=== PATIENT | female | born 1950 | race Caucasian/White ===

== ENCOUNTER 2017-05-21 12:15 | Inpatient (IN) ==
--- NOTE | 2017-05-21 12:23 | Emergency Department Note ---
Disposition Clinical Impression: Hypokalemia, Non-STEMI (non-ST elevated myocardial infarction) UTI (urinary tract infection) Qualifiers: Urinary tract infection type: acute cystitis Hematuria presence: without hematuria Qualified Code(s): N30.00 - Acute cystitis without hematuria Disposition: Admitted As Inpatient Condition: Fair Referrals: Unassigned,Provider [Non-Partnered Physician] - Forms: Work/School Release, ED Satisfaction Letter Time of Disposition: 16:44 General Adult HPI - General Chief complaint: ED General Medical Stated complaint: Multiple complaints Time Seen by Provider: 05/21/17 12:20 Source: patient, EMS Mode of arrival: EMS Limitations: no limitations Nursing Notes Reviewed: Yes Vital Signs Reviewed: Yes - History of Present Illness HPI Narrative: 67-year-old who was seen by her home health care nurse today. She was found lying in the bed covered with feces feces on the floor around the bed. Apparently the Velasquez catheter was changed as it contained a bag of milky white material. After changing the catheter the urine is clear. 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 No chest pain Onset (ago): Just VERIFY REP - Related Data Home Medications Medication Instructions Recorded Confirmed Metformin [Glucophage] 1,000 mg PO BID 07/13/15 05/21/17 Aspirin 325 mg PO DAILY 05/21/17 05/21/17 Atorvastatin Calcium [Lipitor] 20 mg PO HS 05/21/17 05/21/17 Ferrous Sulfate 324 mg PO BID 05/21/17 05/21/17 Glucagon,Human Recombinant 1 mg IJ ONCE PRN 05/21/17 05/21/17 [Glucagon Emergency Kit] Nortriptyline HCl 75 mg PO HS 05/21/17 05/21/17 Sertraline [Zoloft] 50 mg PO HS 05/21/17 05/21/17 Sertraline [Zoloft] 100 mg PO QAM 05/21/17 05/21/17 Allergies Allergy/AdvReac Type Severity Reaction Status Date / Time No Known Allergies Allergy Verified 01/16/16 14:34 All systems ED: reviewed and negative except as stated. Constitutional: Denies: fever, chills, weakness, weight change Eyes: Denies: eye pain, eye discharge, vision change ENT ED: Denies: ear pain, throat pain, dental pain, hearing loss, epistaxis, congestion, dysphagia Cardiovascular: Denies: chest pain, palpitations, dyspnea on exertion, edema, syncope Respiratory: Denies: cough, dyspnea, wheezes, hemoptysis, stridor Gastrointestinal: Denies: abdominal pain, nausea, vomiting, diarrhea, constipation, hematemesis, melena, hematochezia Genitourinary: Denies: dysuria, frequency, hematuria, discharge Musculoskeletal: Reports: other (Inability to ambulate). Denies: back pain, neck pain, arthralgia, myalgia Integumentary: Denies: rash, abrasion, lesions Neurological: Denies: headache, weakness, numbness, paresthesias, confusion, abnormal gait, vertigo Psychiatric: Denies: anxiety, depression, suicidal thoughts, homicidal thoughts , auditory hallucinations, visual hallucinations Endocrine: Denies: fatigue Hematological/Lymphatic: Denies: easy bleeding, easy bruising Allergic/Immunologic: Denies: facial swelling, urticaria Past Medical History - Past Medical History Medical history: Reports: cancer, DVT, diabetes, hyperlipidemia Surgical history: Reports: appendectomy, cancer surgery, hysterectomy, other Psychiatric history: Reports: anxiety, depression 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 - Social History Smoking Status: Never smoker Smokeless Tobacco Status: No Alcohol use: Reports: none Drug use: Reports: none Physical Exam - General Limitations: no limitations General appearance: alert, in no apparent distress - Head Head exam: atraumatic, normocephalic, normal inspection - Eye Eye exam: Present: normal appearance, PERRL, EOMI - ENT ENT exam: normal exam - Neck Neck exam: Present: normal inspection, full ROM, trachea midline - Chest Chest inspection: Present: normal inspection, symmetric chest wall rise - Respiratory Respiratory exam: Present: normal lung sounds bilaterally - Cardiovascular Cardiovascular exam: Present: regular rate, normal rhythm, normal heart sounds - Abdominal Exam Abdominal exam: Present: soft, Non-Tender. Absent: tenderness, distention, guarding, rebound, rigidity - Extremities Exam Extremities exam: Present: other (AKA on the left) - Expanded Lower Extremity Exam Neurovascular/Tendon exam: Present: normal capillary refill Gait: not tested/not observed - Back Exam Back exam: Present: normal inspection, full ROM. Absent: tenderness - Neurological Exam Neurological exam: Present: alert, oriented X3 - Psychiatric Psychiatric exam: Present: normal affect, normal mood - Skin Skin exam: Present: warm, dry, intact, normal color Course - Consultations Consultation #1: Discussed with Dr. Stack, admit Time: 16:42 Consultation #2: Discussed with Dr. Sosa who recommends heparin if no bleeding contraindications which she does not have. I did send the EKG to him for review. Time: 15:30 Vital Signs Temperature 98.4 F 05/21/17 12:18 Pulse Rate 75 05/21/17 12:18 Respiratory Rate 18 05/21/17 12:18 Blood Pressure 131/57 05/21/17 12:18 O2 Sat by Pulse Oximetry 94 05/21/17 12:18 Temperature 98.4 F 05/21/17 12:18 Pulse Rate 75 05/21/17 12:18 Respiratory Rate 18 05/21/17 12:18 Blood Pressure 131/57 05/21/17 12:18 O2 Sat by Pulse Oximetry 94 05/21/17 12:18 Oxygen Delivery Oxygen Delivery Room Air Medical Decision Making - Lab Data Result diagrams: 05/21/17 14:57 05/21/17 16:15 Lab Results 05/21/17 05/21/17 05/21/17 Range/Units 13:17 14:57 14:57 WBC 12.4 H (4.3-11.1) K/mcL RBC 5.22 H (3.82-4.97) M/mcL Hgb 11.7 (11.5-15.4) g/dL Hct 40.5 (35.3-44.9) % MCV 77.6 L (83.0-100.0) fL MCH 22.4 L (28.0-33.3) pg MCHC 28.9 L (31.6-35.5) g/dL RDW 19.0 H (11.5-14.5) % Plt Count 334 (140-400) K/mcL MPV 10.5 (9.4-12.4) fL Seg Neutrophils % 82.0 % Band Neutrophils % 1.0 (0-4) % Lymphocytes % 8.0 % Monocytes % 8.0 % Eosinophils % 1.0 % Neutrophils # 10.3 H (1.6-8.9) K/mcL Lymphocytes # 1.0 (0.6-4.6) K/mcL Monocytes # 1.0 (0.0-1.3) K/mcL Eosinophils # 0.1 (0.0-0.6) K/mcL Reactive Lymphocytes Present A (Not Present) Platelet Estimate Normal (Normal) Hypochromasia Present A (Not Present) Anisocytosis 1+ A (Not Present) Microcytosis Present A (Not Present) Ovalocytes 1+ A (Not Present) PT (9.4-12.1) Seconds INR APTT (26.0-36.0) Seconds Sodium 142 (136-145) mEq/L Potassium 1.9 L* (3.5-4.5) mEq/L Chloride 102 (98-109) mEq/L Carbon Dioxide 30 H (19-29) mEq/L BUN 10 (7-20) mg/dL Creatinine 0.72 (0.57-1.11) mg/dL Est GFR ( Amer) > 60 (> 60) Est GFR (Non-Af Amer) > 60 (> 60) BUN/Creatinine Ratio 14 (6-26) Glucose 69 L (70-99) mg/dL Calculated Osmolality 291 (280-300) Calcium 7.8 L (8.6-10.8) mg/dL Troponin I (0-0.03) ng/mL Urine Color Yellow (Yellow) Urine Clarity Cloudy A (Clear) Urine pH 6.0 (5.0-8.0) pH Units Ur Specific [place] 1.016 (1.010-1.025) Urine Protein 30 H (Neg-Trace) mg/dL Urine Glucose (UA) Normal (Normal) mg/dL Urine Ketones Trace H (Negative) mg/dL Urine Blood Small H (Negative) Urine Nitrite Negative (Negative) Urine Bilirubin Negative (Negative) Urine Urobilinogen Normal (Normal) mg/dL Ur Leukocyte Esterase Moderate H (Negative) Urine Microscopic RBC 3-5 H (0-3) per hpf Urine Microscopic WBC 30-50 H (0-3) per hpf Ur Squamous Epith Cells Moderate H (None-Few) per lpf Urine Bacteria Few (None-Few) per hpf Hyaline Casts None Seen (None-Few) per lpf Ur Culture Indicated? YES A (NO) 05/21/17 05/21/17 05/21/17 Range/Units 14:57 14:57 16:15 WBC (4.3-11.1) K/mcL RBC (3.82-4.97) M/mcL Hgb (11.5-15.4) g/dL Hct (35.3-44.9) % MCV (83.0-100.0) fL MCH (28.0-33.3) pg MCHC (31.6-35.5) g/dL RDW (11.5-14.5) % Plt Count (140-400) K/mcL MPV (9.4-12.4) fL Seg Neutrophils % % Band Neutrophils % (0-4) % Lymphocytes % % Monocytes % % Eosinophils % % Neutrophils # (1.6-8.9) K/mcL Lymphocytes # (0.6-4.6) K/mcL Monocytes # (0.0-1.3) K/mcL Eosinophils # (0.0-0.6) K/mcL Reactive Lymphocytes (Not Present) Platelet Estimate (Normal) Hypochromasia (Not Present) Anisocytosis (Not Present) Microcytosis (Not Present) Ovalocytes (Not Present) PT 12.8 H (9.4-12.1) Seconds INR 1.2 APTT 32.1 (26.0-36.0) Seconds Sodium (136-145) mEq/L Potassium 1.7 L* (3.5-4.5) mEq/L Chloride (98-109) mEq/L Carbon Dioxide (19-29) mEq/L BUN (7-20) mg/dL Creatinine (0.57-1.11) mg/dL Est GFR ( Amer) (> 60) Est GFR (Non-Af Amer) (> 60) BUN/Creatinine Ratio (6-26) Glucose (70-99) mg/dL Calculated Osmolality (280-300) Calcium (8.6-10.8) mg/dL Troponin I 1.05 H* (0-0.03) ng/mL Urine Color (Yellow) Urine Clarity (Clear) Urine pH (5.0-8.0) pH Units Ur Specific [place] (1.010-1.025) Urine Protein (Neg-Trace) mg/dL Urine Glucose (UA) (Normal) mg/dL Urine Ketones (Negative) mg/dL Urine Blood (Negative) Urine Nitrite (Negative) Urine Bilirubin (Negative) Urine Urobilinogen (Normal) mg/dL Ur Leukocyte Esterase (Negative) Urine Microscopic RBC (0-3) per hpf Urine Microscopic WBC (0-3) per hpf Ur Squamous Epith Cells (None-Few) per lpf Urine Bacteria (None-Few) per hpf Hyaline Casts (None-Few) per lpf Ur Culture Indicated? (NO) - EKG Data EKG #1 EKG attestation: Yes I reviewed and interpreted this EKG. EKG shows normal: sinus rhythm Rate: normal Rhythm: NSR, PAC's Q waves: III QRS morphology: poor R-wave progression Interpretation: no acute changes Critical Care Time Critical Care Time: Yes Total Critical Care Time: 30 Attestation: The high probability of a clinically significant, sudden or life threatening deterioration of the [endocrine] system(s) required my full and direct attention , intervention and personal management. The aggregate critical care time was [30 ] minutes. This time is in addition to time spent performing reported procedures but includes the following: [x] Data Review and interpretation [x] Patient assessment and monitoring of vital signs [x] Documentation [x] Medication orders and management
[2017-05-21 13:28] LABS: Bilirubin,Urine Negative (Negative); Blood,Urine Small (Negative); Clarity,Urine Cloudy (Clear); Color,Urine Yellow (Yellow); Glucose,Urine (UA) Normal (Normal); Ketones,Urine Trace mg/dL (Negative); Leukocyte Esterase,Urine Moderate (Negative); Nitrite,Urine Negative (Negative); Protein,Urine 30 mg/dL (Neg-Trace); Specific Gravity,Urine 1.016 (1.010-1.025); Urobilinogen,Urine Normal (Normal)
[2017-05-21 13:30] LABS: Bacteria,Urine Few per hpf (None-Few); Hyaline Casts,Urine None Seen per lpf (None-Few); Squamous Epithelial Cell,Urine Moderate per lpf (None-Few); WBC,Urine 30-50 per hpf (0-3)
[2017-05-21 15:10] LABS: Eosinophils # 0.1 K/mcL (0.0-0.6); Hematocrit 40.5 % (35.3-44.9); Hemoglobin 11.7 g/dL (11.5-15.4); Mean Corpuscular HGB Conc 28.9 g/dL (31.6-35.5); Mean Corpuscular Hemoglobin 22.4 pg (28.0-33.3); Mean Corpuscular Volume 77.6 fL (83.0-100.0); Mean Platelet Volume 10.5 fL (9.4-12.4); Platelet Count 334 K/mcL (140-400); Red Blood Count 5.22 M/mcL (3.82-4.97)
[2017-05-21 15:21] LABS: BUN/Creatinine Ratio 14 (6-26); Blood Urea Nitrogen 10 mg/dL (7-20); Calcium 7.8 mg/dL (8.6-10.8); Carbon Dioxide 30 mEq/L (19-29); Chloride 102 mEq/L (98-109); Glucose 69 mg/dL (70-99); Osmolality,Calculated 291 (280-300); Sodium 142 mEq/L (136-145); eGFR For African Americans > 60 (> 60); eGFR For Non-African Americans > 60 (> 60)
[2017-05-21 15:23] LABS: Potassium 1.9 mEq/L (3.5-4.5)
[2017-05-21] MEDS ORDERED: *HR* Heparin 5,000 UNIT/ML VIAL IVP PRN ×2 (15:45)
[2017-05-21] MEDS ORDERED: *HR* Heparin 5,000 UNIT/ML VIAL IVP ONE (15:45)
[2017-05-21 15:53] LABS: Neutrophils # 10.3 K/mcL (1.6-8.9); Reactive Lymphocytes Present (Not Present)
[2017-05-21 15:54] LABS: Anisocytosis 1+ (Not Present); Ovalocytes 1+ (Not Present)
[2017-05-21 15:55] LABS: Hypochromasia Present (Not Present); Microcytosis Present (Not Present); Platelet Estimate Normal (Normal)
[2017-05-21 16:02] LABS: INR 1.2; Prothrombin Time 12.8 Seconds (9.4-12.1)
[2017-05-21 16:04] LABS: Activated Partial Thrombo Time 32.1 Seconds (26.0-36.0)
[2017-05-21 16:33] LABS: Potassium 1.7 mEq/L (3.5-4.5)
[2017-05-21] MEDS: Heparin 25,000 UNIT/500 ML D5W 25,000 UNIT/500 ML MLS IVC SCH (16:46)
[2017-05-21] MEDS ORDERED: D5% in Water 1,000 ML IVC PRN (18:03)
[2017-05-21] MEDS ORDERED: Dextrose Gel 15 GM PO PRN ×2 (18:03)
[2017-05-21] MEDS ORDERED: *HR* Dextrose 50 % in Water (Syg) 50 ML SYRINGE IVP PRN (18:03)
[2017-05-21] MEDS ORDERED: Naloxone 0.4 MG/ML INJ IVP PRN (18:04)
[2017-05-21] MEDS ORDERED: Acetaminophen 325 MG TABLET PO PRN (18:04)
[2017-05-21] MEDS ORDERED: *HR* Morphine 2 MG/ML SYRINGE IVP PRN (18:04)
[2017-05-21] MEDS ORDERED: Ondansetron 4 MG/2 ML VIAL IVP PRN (18:04)
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
[2017-05-21 18:33] LABS: Magnesium 0.8 mg/dL (1.6-2.6)
[2017-05-21] MEDS ORDERED: Magnesium Sulfate 2 GM in D5% in Water 100 ML IVPB ONE (18:35)
[2017-05-21 18:45] LABS: Hemoglobin A1C 5.2 %
[2017-05-21] MEDS: Aspirin 325 MG TABLET PO SCH (18:50)
[2017-05-21] MEDS: Magnesium Oxide 400 MG TABLET PO SCH (20:36)
[2017-05-21] MEDS: Famotidine 20 MG TABLET PO SCH (20:37)
[2017-05-21] MEDS: Potassium Chloride 40 MEQ, Lidocaine 1% 2 ML in D5% in Water 500 ML IVPB SCH (23:03)
[2017-05-22] MEDS ORDERED: Insulin LISPRO 300 UNITS/3 ML VIAL SQ SCH
[2017-05-22 01:56] LABS: Basophils % 0.3 %; Immature Granulocytes % 0.4 % (0-4)
[2017-05-22 01:57] LABS: Eosinophils # 0.3 K/mcL (0.0-0.6); Eosinophils % 2.8 %; Hematocrit 33.8 % (35.3-44.9); Hemoglobin 9.9 g/dL (11.5-15.4); Lymphocytes # 1.2 K/mcL (0.6-4.6); Lymphocytes % 10.4 %; Mean Corpuscular HGB Conc 29.3 g/dL (31.6-35.5); Mean Corpuscular Hemoglobin 22.6 pg (28.0-33.3); Mean Corpuscular Volume 77.2 fL (83.0-100.0); Mean Platelet Volume 11.1 fL (9.4-12.4); Monocytes # 1.1 K/mcL (0.0-1.3); Monocytes % 9.1 %; Neutrophils # 9.1 K/mcL (1.6-8.9); Nucleated Red Blood Cells 0.2 /100 WBC (0); Platelet Count 298 K/mcL (140-400); Red Blood Count 4.38 M/mcL (3.82-4.97)
[2017-05-22 02:00] LABS: INR 1.2; Prothrombin Time 13.4 Seconds (9.4-12.1)
[2017-05-22 02:19] LABS: Alanine Aminotransferase 19 Units/L (0-55); Albumin 2.5 g/dL (3.5-5.0); Albumin/Globulin Ratio 0.9 (1.1-2.2); Alkaline Phosphatase 104 Units/L (38-126); Aspartate Amino Transferase 23 Units/L (5-34); BUN/Creatinine Ratio 13 (6-26); Bilirubin,Total 0.2 mg/dL (0.2-1.2); Blood Urea Nitrogen 11 mg/dL (7-20); Calcium 7.3 mg/dL (8.6-10.8); Carbon Dioxide 27 mEq/L (19-29); Chloride 104 mEq/L (98-109); Chol/HDL Ratio 2.5 (0-4.9); Cholesterol 81 mg/dL (< 200); Globulin 2.8 g/dL (2.4-3.5); Glucose 223 mg/dL (70-99); HDL Cholesterol 32 mg/dL (40-59); LDL Cholesterol,Calculated 28 mg/dL (0-99); Magnesium 1.4 mg/dL (1.6-2.6); Osmolality,Calculated 292 (280-300); Sodium 138 mEq/L (136-145); Total Protein 5.3 g/dL (6.0-8.3); Triglycerides 103 mg/dL (< 150); eGFR For African Americans > 60 (> 60); eGFR For Non-African Americans > 60 (> 60)
[2017-05-22 02:25] LABS: Potassium 2.4 mEq/L (3.5-4.5)
[2017-05-22 02:53] LABS: Anisocytosis 1+ (Not Present); Hypochromasia Present (Not Present); Microcytosis Present (Not Present); Platelet Estimate Normal (Normal)
[2017-05-22] MEDS: Potassium Chloride 40 MEQ, Lidocaine 1% 2 ML in D5% in Water 500 ML IVPB SCH ×2 (04:06→07:30)
[2017-05-22] MEDS: Aspirin 325 MG TABLET PO SCH (07:31)
[2017-05-22] MEDS: Magnesium Oxide 400 MG TABLET PO SCH ×2 (07:31→20:31)
[2017-05-22] MEDS: Famotidine 20 MG TABLET PO SCH ×2 (07:31→16:27)
[2017-05-22] MEDS: Insulin LISPRO 300 UNITS/3 ML VIAL SQ SCH ×4 (07:32→20:33)
--- NOTE | 2017-05-22 08:19 | Nephrology Consult Note ---
Date of Encounter: 05/22/17 Time of Encounter: 08:17 Assessment and Plan (1) Hypokalemia Current Visit: Yes Status: Acute Patient presents with severe hypokalemia and hypomagnesemia. This seems to be a new finding. Previous potassium levels have all been within the normal range. Patient reports she is not on diuretics. Potential etiologies include GI losses. She does have a history of hypertension and could have primary hyperaldosteronism. She did also have some type of renal tubular disorder. However her CO2 was 30 making the presence of renal tubular acidosis less likely. At this point I would continue with potassium and magnesium replacement. We will check a plasma aldosterone level and plasma renin activity. If she has of being difficult to replete as far as her potassium goes we will do additional evaluation. (2) Uterine cancer Current Visit: No Status: Chronic Qualifiers: Malignant neoplasm of uterus location: body of uterus Malignant neoplasm of body of uterus location: unspecified location Qualified Code(s): C54.9 - Malignant neoplasm of corpus uteri, unspecified (3) Neurogenic bladder Current Visit: No Status: Chronic (4) Non-STEMI (non-ST elevated myocardial infarction) Current Visit: Yes Status: Acute History of Present Illness - History of Present Illness This is a 67-year-old female presents emergency room after being seen by her home health aide. Patient was complaining of generalized weakness and fatigue. She was noted to have severe hypokalemia at 2.0 with a CO2 level of 30. She was also hypomagnesemic with a magnesium of 0.8. Troponin was also elevated and she has been diagnosed with an end STEMI. Patient denies having any previous issues with hypokalemia. Lab studies from 2014 through earlier in 2017 showed potassium ranging from 3.6-4.5. Patient has a history of hypertension. The best of her knowledge she does not take diuretics. She reports she stopped taking her blood pressure medicine about a year ago because she thought it was making her hair thin. Over the past 4 days patient had been having some diarrhea. She denies any nausea or vomiting. She has a history of what sounds like a neurogenic bladder and has a chronic indwelling Velasquez catheter. On admission she had evidence of a urinary tract infection. Patient is alert and oriented. She is sitting in her bed eating breakfast. Patient is status post left above-knee amputation. She apparently lives at home. Her son does assist her but she does live by herself. She is dependent upon the neighbor to get her groceries. She says she prepares her own meals. She says her appetite and fluid intake has been normal for her. Past Med Surg Social Fam HX - Past Medical History Medical history: cancer, DVT, diabetes, hyperlipidemia Psychiatric history: anxiety, depression - Past Surgical History Surgical History: appendectomy, cancer surgery, hysterectomy, other - Social History Smoking Status: Never smoker Smokeless Tobacco Status: No Alcohol use: none Drug use: none - Family History Mother Living Status: Hx Family Cardiac Disorders: Yes Hx Family Neuromuscular Disorders: No Father Living Status: Son Living Status: Still Living Hx Family Endocrine Disorder: Yes (diabetic) Hx Family Neurologic Disorders: Yes (seizures) Medications and Allergies Metformin [Glucophage] 1,000 mg PO BID 07/13/15 [History] Aspirin 325 mg PO DAILY 05/21/17 [History] Atorvastatin Calcium [Lipitor] 20 mg PO HS 05/21/17 [History] Ferrous Sulfate 324 mg PO BID 05/21/17 [History] Glucagon,Human Recombinant [Glucagon Emergency Kit] 1 mg IJ ONCE PRN 05/21/17 [ History] Nortriptyline HCl 75 mg PO HS 05/21/17 [History] Sertraline [Zoloft] 50 mg PO HS 05/21/17 [History] Sertraline [Zoloft] 100 mg PO QAM 05/21/17 [History] Allergies No Known Allergies Allergy (Verified 01/16/16 14:34) Review of Systems Constitutional: weakness Eyes: bilateral: blurred vision (patient denies), diplopia (patient denies) Nose, mouth and throat: no dizziness, no headache(s) Cardiovascular: no chest pain, no palpitations Respiratory: no cough, no dyspnea Gastrointestinal: diarrhea Musculoskeletal: no muscle weakness, no numbness Integumentary: no hirsutism, no striae Neurological: weakness Psychiatric: no depression, no difficulty concentrating Endocrine: as per HPI Hematologic/Lymphatic: no easy bruising, no lymphadenopathy Exam - Vital Signs Vital signs: Initial Vital Signs Temp Pulse Resp BP Pulse Ox 98.4 F 75 18 131/57 94 05/21/17 12:18 05/21/17 12:18 05/21/17 12:18 05/21/17 12:18 05/21/17 12:18 Vital Signs - Last 8 Hours Temp Pulse Resp BP Pulse Ox 05/22/17 07:10 97.6 F 80 16 144/84 98 05/22/17 05:14 97.6 F 78 14 123/70 97 Intake and Output 05/21/17 05/22/17 05/22/17 23:59 07:59 15:59 Intake Total 181.9 / 181.9 1160.1 / 1160.1 Output Total 400 / 400 Balance -218.1 / -218.1 1160.1 / 1160.1 Intake: IV Fluids 181.9 / 181.9 1160.1 / 1160.1 Heparin 25,000 UNIT/500 81.9 / 81.9 116.1 / 116.1 ML D5W 25,000 unit In 500 ml @ 12 UNIT/KG/HR 14. 696 mls/hr IVC .Q24H TOM Rx#:[id number] Potassium Chloride 10 mEq 100 / 100 /100mL 10 meq In 100 ml @ 100 mls/hr IVPB Q1H TOM Rx#:[id number] KCl 40 MEQ Xylocaine 2 ML 1044 / 1044 In Dextrose 5% 500 ML @ 130.5 mls/hr IVPB Q4H TOM Rx#:[id number] Output: Catheter 400 / 400 Other: Stool Size Moderate Stool Color Green # Bowel Movement Diapers 1 Weight 62.4 kg 62.5 kg Blood Glucose* 144 248 Patient Weight 05/22/17 23:59 Weight 62.5 kg - General Appearance Exam: Patient is alert and oriented. She is in no acute distress. Vital signs are stable. Neck is supple. Lungs essentially clear to auscultation. Heart regular rate and rhythm. Abdomen shows normal bowel sounds Brozman masses, megaly or tenderness. There is some mild swelling of the right lower extremity with associated erythema and superficial skin ulcers. Patient status post left above-knee amputation. Velasquez catheter is in place. Results - Lab Results 05/22/17 01:31 05/22/17 01:31 Most recent lab results Calcium 7.3 mg/dL (8.6-10.8) L 05/22/17 01:31 Magnesium 1.4 mg/dL (1.6-2.6) L 05/22/17 01:31 Consult Discharge Plan - Plan Referrals: Smita Mauricio, KATY [Primary Care Provider] - ([facility] Placement)
[2017-05-22 09:53] LABS: Albumin 2.5 g/dL (3.5-5.0); BUN/Creatinine Ratio 13 (6-26); Blood Urea Nitrogen 10 mg/dL (7-20); Calcium 7.3 mg/dL (8.6-10.8); Carbon Dioxide 28 mEq/L (19-29); Chloride 105 mEq/L (98-109); Glucose 212 mg/dL (70-99); Osmolality,Calculated 297 (280-300); Phosphorous 1.9 mg/dL (2.3-4.7); Potassium 3.1 mEq/L (3.5-4.5); Sodium 141 mEq/L (136-145); eGFR For African Americans > 60 (> 60); eGFR For Non-African Americans > 60 (> 60)
--- NOTE | 2017-05-22 10:26 | Internal Med Progress Note ---
<Wes Polk - Last Filed: 05/22/17 16:14> Date of Encounter: 05/22/17 Time of Encounter: 10:23 - Assessment and plan (1) Non-STEMI (non-ST elevated myocardial infarction) Current Visit: Yes Status: Acute Assessment and plan: - Troponin 1.05, 0.89, 0.85., 0.89. Leveling out. - Cardiology following, appreciate recommendations. Recommend echocardiogram to evaluate structure and function, ordered for this afternoon. continuing heparin drip for 24-48 hours - No history of coronary artery disease, no cardiac workup in the past - Patient is currently asymptomatic, denies chest pain, shortness of breath, nausea, vomiting, diaphoresis - We will continue aspirin, atorvastatin, heparin - QUIANA score equals 4 (age, risk factors, aspirin use, positive cardiac marker) (2) UTI (urinary tract infection) Current Visit: Yes Status: Acute Assessment and plan: - UA done in emergency department revealed mild leukocyte esterase, small blood , 30-50 white blood cells - Patient is currently asymptomatic including dysuria, fevers, chills, back pain - Patient has chronic indwelling Jay catheter secondary to neurogenic bladder - Patient started on Rocephin 1 g daily emergency department. We will continue Qualifiers: Urinary tract infection type: acute cystitis Hematuria presence: without hematuria Qualified Code(s): N30.00 - Acute cystitis without hematuria; N39.0 - Urinary tract infection, site not specified (3) Hypokalemia Current Visit: Yes Status: Acute Assessment and plan: Potassium in the emergency was 1.7. He has been receiving potassium replacements. Most recent K was 3.1 - Nephrology following, appreciate recommendations. Recommend serum aldosterone and plasma renin activity - We will continue to monitor and replenish as needed. External scheduled for this evening (4) Hypomagnesemia Current Visit: Yes Status: Acute Assessment and plan: - Magnesium in emergency department was 1.4 - She received 2 mg emergency department - She was given an additional 2 mg this morning - We will continue to monitor and plan she has needed (5) Hx of deep venous thrombosis Current Visit: No Status: Chronic Assessment and plan: - Patient was complaining of right leg swelling. Does admit to some tenderness upon palpation - Ultrasound ordered for rule out DVT. Preliminary results show no evidence of DVT. - Patient receiving heparin for NSTEMI (6) DM2 (diabetes mellitus, type 2) Current Visit: No Status: Chronic Assessment and plan: - Continue moderate insulin sliding scale - Hzn-dyonqwa-qszycrjag home medications. Well controlled with metformin - Phyllis most recent A1c in emergency department was 5.2 - We will continue to monitor Qualifiers: Diabetes mellitus complication status: with unspecified complications Diabetes mellitus mcc insulin use: without shift lab technician use Qualified Code( s): E11.8 - Type 2 diabetes mellitus with unspecified complications - Time Spent With Patient Greater than 35 minutes - Subjective Interval history: Patient was seen and examined at bedside this morning. She reports she is feeling much better this morning. He currently denies any symptoms of chest pain, shortness of breath, nausea, vomiting. She states when she was admitted last night she was experiencing generalized weakness, however after sleeping the night through and eating a good meal last night and this morning she is feeling better. She states she may have had one further episode of fecal incontinence this morning, however she states she does not remember fully. She also does admit to some calf tenderness on the right. She also continues to deny any symptoms of dysuria, fevers, chills, back pain. - Constitutional Vitals: Temp Pulse Resp BP Pulse Ox 97.6 F 80 16 144/84 98 05/22/17 07:10 05/22/17 07:10 05/22/17 07:10 05/22/17 07:10 05/22/17 07:10 General appearance: Present: A&O X 3, pleasant, no acute distress, answers questions appropriately Exam: Gen.: Vitals noted. No acute distress. AAOx3 HEENT: PERRL, oropharynx clear, moist mucous membranes, Normocephalic, atraumatic Neck: Supple. No adenopathy. Cardiac: RRR, no murmur, +S1/S2 Pulmonary: Mild crackles on the left lower lobe, no wheezes, equal chest expansion Abdomen: soft, nontender, BS noted, no guarding Back: Nontender throughout. MSK: ROM intact, no joint swelling noted Extremities: Right calf tenderness, left pkhby-uta-gvkn amputation, dry scaling skin on the right consistent with peripheral vascular disease. no BLE edema, nontender calf, no cyanosis or clubbing Neuro: A&Ox3, moves all extremities, no focal deficits Psych: Appropriate mood and behavior Internal Medicine: Result - Labs CBC & Chem 7: 05/22/17 01:31 05/22/17 09:22 Labs: Short CBC 05/22/17 Range/Units 01:31 WBC 11.8 H (4.3-11.1) K/mcL Hgb 9.9 L D (11.5-15.4) g/dL Hct 33.8 L (35.3-44.9) % Plt Count 298 (140-400) K/mcL Neutrophils # 9.1 H (1.6-8.9) K/mcL BMP 05/21/17 05/22/17 05/22/17 20:13 01:31 09:22 Sodium 138 141 Potassium 2.0 L* 2.4 L* 3.1 L Chloride 104 105 Carbon Dioxide 27 28 BUN 11 10 Creatinine 0.82 0.77 Glucose 223 H 212 H Calcium 7.3 L 7.3 L Cardiac Enzymes 05/22/17 05/22/17 Range/Units 01:31 05:38 Troponin I 0.85 H* 0.89 H* (0-0.03) ng/mL Liver Function 05/22/17 05/22/17 Range/Units 01:31 09:22 Total Bilirubin 0.2 (0.2-1.2) mg/dL AST 23 (5-34) Units/L ALT 19 (0-55) Units/L Alkaline Phosphatase 104 (38-126) Units/L Albumin 2.5 L 2.5 L (3.5-5.0) g/dL - ABG Interpretation ABG results: PT/INR, D-dimer PT 13.4 Seconds (9.4-12.1) H 05/22/17 01:31 Consult Discharge Plan - Plan Referrals: Smita Mauricio, MECHANICAL TECH [Primary Care Provider] - (ECF Placement) <Sarwat Schafer - Last Filed: 05/22/17 18:03> Date of Encounter: 05/22/17 - Assessment and plan (1) Non-STEMI (non-ST elevated myocardial infarction) Current Visit: Yes Status: Acute (2) UTI (urinary tract infection) Current Visit: Yes Status: Acute Qualifiers: Urinary tract infection type: catheter-associated UTI Indwelling urinary catheter type: indwelling urethral catheter Encounter type: subsequent encounter Qualified Code(s): T83.511D - Infection and inflammatory reaction due to indwelling urethral catheter, subsequent encounter; N39.0 - Urinary tract infection, site not specified (3) Hypokalemia Current Visit: Yes Status: Acute (4) Hypomagnesemia Current Visit: Yes Status: Acute (5) Urinary retention Current Visit: No Status: Chronic Assessment and plan: Chronic jay with neurogenic bladder (6) DM2 (diabetes mellitus, type 2) Current Visit: No Status: Chronic Qualifiers: Diabetes mellitus complication status: with unspecified complications Diabetes mellitus mcc insulin use: without shift lab technician use Qualified Code( s): E11.8 - Type 2 diabetes mellitus with unspecified complications - Constitutional Vitals: Temp Pulse Resp BP Pulse Ox 98.0 F 87 18 144/76 98 05/22/17 15:20 05/22/17 15:20 05/22/17 15:20 05/22/17 15:20 05/22/17 15:20 Internal Medicine: Result - Labs CBC & Chem 7: 05/22/17 01:31 05/22/17 09:22 Labs: Short CBC 05/22/17 Range/Units 01:31 WBC 11.8 H (4.3-11.1) K/mcL Hgb 9.9 L D (11.5-15.4) g/dL Hct 33.8 L (35.3-44.9) % Plt Count 298 (140-400) K/mcL Neutrophils # 9.1 H (1.6-8.9) K/mcL BMP 05/21/17 05/22/17 05/22/17 20:13 01:31 09:22 Sodium 138 141 Potassium 2.0 L* 2.4 L* 3.1 L Chloride 104 105 Carbon Dioxide 27 28 BUN 11 10 Creatinine 0.82 0.77 Glucose 223 H 212 H Calcium 7.3 L 7.3 L Cardiac Enzymes 05/22/17 05/22/17 Range/Units 01:31 05:38 Troponin I 0.85 H* 0.89 H* (0-0.03) ng/mL Liver Function 05/22/17 05/22/17 Range/Units 01:31 09:22 Total Bilirubin 0.2 (0.2-1.2) mg/dL AST 23 (5-34) Units/L ALT 19 (0-55) Units/L Alkaline Phosphatase 104 (38-126) Units/L Albumin 2.5 L 2.5 L (3.5-5.0) g/dL - ABG Interpretation ABG results: PT/INR, D-dimer PT 13.4 Seconds (9.4-12.1) H 05/22/17 01:31 - Attending Attestation I examined this patient and my medical decision-making was reviewed with the Resident Physician on 05/22/17. I agree with the documented findings, disposition and treatment plan as described except to the extent set forth below. Ms. Mallory is currently admitted for acute NSTEMI and UTI. She remains high risk due to electrolyte abnormalities and risk for further cardiac issues. Ms Mallory has no complaints at this time. No CP or SOB. Still very weak. No fever or chills. Has UTI - chronic jay. Exam Alert. Comfortable Heart reg No wheeze I/P 1. CAUTI - present on admit 2. NSTEMI 3. Hypokalemia, hypomagnesemia Further diagnoses and plan as above.
[2017-05-22] MEDS ORDERED: *HR* HYDROcodone/Acet 5/325 mg TABLET PO PRN (10:31)
[2017-05-22] MEDS ORDERED: Magnesium Sulfate 2 GM in D5% in Water 100 ML IVPB ONE (10:38)
--- NOTE | 2017-05-22 10:51 | Cardiology Consult Note ---
<Deepak Cruz R - Last Filed: 05/22/17 12:44> Date of Encounter: 05/22/17 Time of Encounter: 10:45 Assessment and Plan (1) Elevated troponin Current Visit: Yes Status: Acute Troponin 1.05, 0.89, 0.85, 0.85. Troponins downtrending/somewhat flat in setting of severe electrolyte imbalance with K as low as 1.7 and Mag 0.8, now improved and with UTI. NSTEMI vs. Demand ischemia. Pt denies chest pain. EKG with diffuse ST flattening. She does report conversational dyspnea that has been ongoing. She is mostly bed/ wheelchair bound with left AKA. No hx of CAD, no prior ischemic eval. Recommend heparin gtt x 24-48 hours. Echo to evaluate structure and function. Further recommendations pending echo results. (2) Hypokalemia Current Visit: Yes Status: Acute K as low as 1.7, 3.1 at last check. Nephrology involved as well. Continue replacement and nephrology recommendations of checking a plasma aldosterone level and plasma renin activity. (3) Hypomagnesemia Current Visit: Yes Status: Acute Initially 0.8, replaced and now 1.4. Continue to replace. Discussion w patient/family: The assessment and plan as outlined above was discussed with the patient and/or family members who expressed understanding and agreement. All questions were answered. Thank you for involving us in the care of your patient. Please call with any questions. I will discuss all the above with Dr. Palacio and make changes as necessary. History of Present Illness Consult date: 05/22/17 Requesting physician: Dashawn Armstrong Consult reason: Elevated troponin Chief complaint: Weakness History of present illness: Ms. Mallory is a 67 year old female with PMH of diabetes, history of DVT, peripheral vascular disease, hyperlipidemia, chronic anemia, status post left above-knee amputation, anxiety and depression, endometrioid carcinoma, [id number] with focal lymph vascular space invasion status post hysterectomy without lymph node dissection and vaginal cuff brachytherapy, clinically doing well with no evidence of disease per recent oncology visit. She presents to the ED via EMS. Patient was seen by her home health care nurse yesterday. She was apparently found lying in bed covered in feces and the patient's Velasquez catheter contained purulent and milky white material. The catheter was changed and patient was sent to the ED. Patient lives by herself at home and is mostly bedbound or wheelchair bound. Patient was asymptomatic except for some mild generalized weakness, which is now improved. Initial ED evaluation revealed elevated troponin of 1.05, 0.89, 0.85, 0.89, severe hypokalemia with K as low as 1.7, elevated white count and UTI. Pt denies chest pain. Upon questioning, she does report she has noticed conversational dyspnea recently. Past Med Surg Social Fam HX - Past Medical History Medical history: cancer, DVT, diabetes, hyperlipidemia Psychiatric history: anxiety, depression - Past Surgical History Surgical History: appendectomy, cancer surgery, hysterectomy, other - Social History Smoking Status: Never smoker Smokeless Tobacco Status: No Alcohol use: none Drug use: none - Family History Mother Living Status: Hx Family Cardiac Disorders: Yes Hx Family Neuromuscular Disorders: No Father Living Status: Son Living Status: Still Living Hx Family Endocrine Disorder: Yes (diabetic) Hx Family Neurologic Disorders: Yes (seizures) Medications and Allergies Metformin [Glucophage] 1,000 mg PO BID 07/13/15 [History] Aspirin 325 mg PO DAILY 05/21/17 [History] Atorvastatin Calcium [Lipitor] 20 mg PO HS 05/21/17 [History] Ferrous Sulfate 324 mg PO BID 05/21/17 [History] Glucagon,Human Recombinant [Glucagon Emergency Kit] 1 mg IJ ONCE PRN 05/21/17 [ History] Nortriptyline HCl 75 mg PO HS 05/21/17 [History] Sertraline [Zoloft] 50 mg PO HS 05/21/17 [History] Sertraline [Zoloft] 100 mg PO QAM 05/21/17 [History] Allergies No Known Allergies Allergy (Verified 01/16/16 14:34) All Systems Review: A 10-system review of systems was performed and is negative for pertinent findings except as documented above in the HPI. - Constitutional Constitutional: weakness - Cardiovascular Cardiovascular: dyspnea at rest, dyspnea on exertion - Respiratory Respiratory: dyspnea Physical Examination Vital Signs, Last 4 Hours Temp Pulse Resp BP Pulse Ox 05/22/17 07:10 97.6 F 80 16 144/84 98 Vital Signs Temp Pulse Resp BP Pulse Ox 05/22/17 10:48 98.1 F 90 16 130/79 98 05/22/17 07:10 97.6 F 80 16 144/84 98 05/22/17 05:14 97.6 F 78 14 123/70 97 05/21/17 23:35 98.6 F 73 18 148/73 97 05/21/17 18:42 97 05/21/17 18:38 98.4 F 82 18 116/48 87 05/21/17 17:25 18 153/70 05/21/17 12:18 98.4 F 75 18 131/57 94 Intake and Output 05/21/17 05/22/17 05/22/17 23:59 07:59 15:59 Intake Total 181.9 / 181.9 1160.1 / 1160.1 Output Total 400 / 400 Balance -218.1 / -218.1 1160.1 / 1160.1 Intake: IV Fluids 181.9 / 181.9 1160.1 / 1160.1 Heparin 25,000 UNIT/500 81.9 / 81.9 116.1 / 116.1 ML D5W 25,000 unit In 500 ml @ 12 UNIT/KG/HR 14. 696 mls/hr IVC .Q24H TOM Rx#:[id number] Potassium Chloride 10 mEq 100 / 100 /100mL 10 meq In 100 ml @ 100 mls/hr IVPB Q1H TOM Rx#:[id number] KCl 40 MEQ Xylocaine 2 ML 1044 / 1044 In Dextrose 5% 500 ML @ 130.5 mls/hr IVPB Q4H TOM Rx#:[id number] Output: Catheter 400 / 400 Other: Stool Size Moderate Stool Color Green # Bowel Movement Diapers 1 Weight 62.4 kg 62.5 kg Blood Glucose* 144 248 261 Patient Weight 05/22/17 23:59 Weight 62.5 kg General: Conversant, No Apparent Distress HEENT: Atraumatic, Normocephaly, Mucus Membranes Moist Neck: No JVD, Normal carotid pulses Cardiac: Reg Rate and Rhythm, Normal S1 and S2, No Murmur Lungs: Normal Breath Sounds, No Wheeze, Rales, Rhonchi Neuro: Alert and responsive, No focal deficits noted Abdomen: Soft, Non-Tender Skin: No rashes noted on visualized skin Musculoskeletal: No Chest Wall Tenderness Extremities: Other (left AKA) Results 05/22/17 01:31 05/22/17 09:22 Lab Results 05/21/17 05/21/17 05/22/17 20:13 22:49 01:31 WBC Hgb Hct Plt Count INR APTT 47.8 H D Sodium Potassium 2.0 L* Chloride Carbon Dioxide BUN Creatinine Glucose Calcium Magnesium Total Bilirubin AST ALT Alkaline Phosphatase Troponin I 0.85 H* 05/22/17 05/22/17 05/22/17 01:31 01:31 01:31 WBC 11.8 H Hgb 9.9 L D Hct 33.8 L Plt Count 298 INR 1.2 APTT Sodium 138 Potassium 2.4 L* Chloride 104 Carbon Dioxide 27 BUN 11 Creatinine 0.82 Glucose 223 H Calcium 7.3 L Magnesium 1.4 L Total Bilirubin 0.2 AST 23 ALT 19 Alkaline Phosphatase 104 Troponin I 05/22/17 05/22/17 05/22/17 05:38 05:38 09:22 WBC Hgb Hct Plt Count INR APTT 81.2 H D Sodium 141 Potassium 3.1 L Chloride 105 Carbon Dioxide 28 BUN 10 Creatinine 0.77 Glucose 212 H Calcium 7.3 L Magnesium Total Bilirubin AST ALT Alkaline Phosphatase Troponin I 0.89 H* Short CBC 05/22/17 05/21/17 Range/Units 01:31 14:57 WBC 11.8 H 12.4 H (4.3-11.1) K/mcL Hgb 9.9 L D 11.7 (11.5-15.4) g/dL Hct 33.8 L 40.5 (35.3-44.9) % Plt Count 298 334 (140-400) K/mcL Neutrophils # 9.1 H 10.3 H (1.6-8.9) K/mcL BMP 05/22/17 05/22/17 05/21/17 Range/Units 09:22 01:31 20:13 Sodium 141 138 (136-145) mEq/L Potassium 3.1 L 2.4 L* 2.0 L* (3.5-4.5) mEq/L Chloride 105 104 (98-109) mEq/L Carbon Dioxide 28 27 (19-29) mEq/L BUN 10 11 (7-20) mg/dL Creatinine 0.77 0.82 (0.57-1.11) mg/dL Glucose 212 H 223 H (70-99) mg/dL Calcium 7.3 L 7.3 L (8.6-10.8) mg/dL 05/21/17 05/21/17 Range/Units 16:15 14:57 Sodium 142 (136-145) mEq/L Potassium 1.7 L* 1.9 L* (3.5-4.5) mEq/L Chloride 102 (98-109) mEq/L Carbon Dioxide 30 H (19-29) mEq/L BUN 10 (7-20) mg/dL Creatinine 0.72 (0.57-1.11) mg/dL Glucose 69 L (70-99) mg/dL Calcium 7.8 L (8.6-10.8) mg/dL Cardiac Enzymes 05/22/17 05/22/17 05/21/17 Range/Units 05:38 01:31 16:15 Troponin I 0.89 H* 0.85 H* 0.89 H* (0-0.03) ng/mL 05/21/17 Range/Units 14:57 Troponin I 1.05 H* (0-0.03) ng/mL Liver Function 05/22/17 05/22/17 Range/Units 09:22 01:31 Total Bilirubin 0.2 (0.2-1.2) mg/dL AST 23 (5-34) Units/L ALT 19 (0-55) Units/L Alkaline Phosphatase 104 (38-126) Units/L Albumin 2.5 L 2.5 L (3.5-5.0) g/dL Urine 05/21/17 Range/Units 13:17 Urine Color Yellow (Yellow) Urine Clarity Cloudy A (Clear) Urine pH 6.0 (5.0-8.0) pH Units Ur Specific [place] 1.016 (1.010-1.025) Urine Protein 30 H (Neg-Trace) mg/dL Urine Glucose (UA) Normal (Normal) mg/dL Impressions Chest X-Ray 05/21/17 12:20 IMPRESSION: No acute abnormality. Round small opacity in the left mid lung likely representing atelectasis. Radiographic follow up is suggested to evaluate for resolution. D/ / 05/21/2017 13:33:26 Aly Sanches MD / dinah Interpreting Provider: Aly Sanches MD Active Medications Acetaminophen (Tylenol) 650 mg PO Q6HR PRN PRN Reason: Mild Pain (1-3) Stop: 11/20/17 18:05 Hydrocodone Bitart/Acetaminophen ([place] 5-325 Mg) 1 tab PO Q6HR PRN PRN Reason: Moderate to Severe Pain (4-10) Stop: 11/21/17 10:32 Aspirin (Aspirin) 325 mg PO DAILY [facility] Stop: 11/20/17 18:01 Last Admin: 05/22/17 07:31 Dose: 325 mg Atorvastatin Calcium (Lipitor) 20 mg PO HS TOM Stop: 11/20/17 21:01 Last Admin: 05/21/17 20:36 Dose: 20 mg Dextrose/Water (Dextrose 50% (Syg)) 25 ml IVP AD PRN PRN Reason: Hypoglycemia Stop: 11/20/17 18:04 Famotidine (Pepcid) 20 mg PO 0730,1630 [facility] Stop: 11/21/17 16:31 Ferrous Sulfate (Ferrous Sulfate) 325 mg PO BIDWM [facility] Stop: 11/21/17 17:01 Glucagon (Glucagen) 1 mg IM ONCE PRN PRN Reason: Hypoglycemia Stop: 11/20/17 18:04 Glucose (Gluctose) 15 gm PO ONCE PRN PRN Reason: Hypoglycemia Stop: 11/20/17 18:04 Glucose (Gluctose) 30 gm PO ONCE PRN PRN Reason: Hypoglycemia Stop: 11/20/17 18:04 Heparin Sodium (Porcine) (Heparin) 3,700 unit 60 unit/kg (3700 unit) IVP Q6HR PRN PRN Reason: SEE COMMENTS Stop: 11/20/17 15:46 Heparin Sodium (Porcine) (Heparin) 1,800 unit 30 unit/kg (1800 unit) IVP Q6H PRN PRN Reason: SEE COMMENTS Stop: 11/20/17 15:46 Last Admin: 05/21/17 23:35 Dose: 1,800 unit Heparin Sodium/Dextrose (Heparin 25,000 Unit/500 Ml D5w) 25,000 unit in 500 mls @ 14.696 mls/hr IVC .Q24H TOM; 12 UNIT/KG/HR PRN Reason: Protocol Stop: 11/20/17 15:46 Last Titration: 05/22/17 06:09 Dose: 14.37 unit/kg/hr, 17.6 mls/hr Ceftriaxone Sodium 1,000 mg/ (Dextrose) 100 mls @ 200 mls/hr IVPB DAILY [facility] Stop: 11/21/17 09:01 Last Admin: 05/22/17 09:28 Dose: 200 mls/hr Dextrose (Dextrose 5%) 1,000 mls @ 100 mls/hr IVC .Q10H PRN PRN Reason: HYPOGLYCEMIA Stop: 11/20/17 18:04 Magnesium Sulfate 2 gm/ (Dextrose) 104 mls @ 100 mls/hr IVPB ONCE ONE Stop: 05/22/17 11:40 Insulin Human Lispro (Humalog) 0 units SQ TIDAC [facility] PRN Reason: Protocol Stop: 11/21/17 07:31 Last Admin: 05/22/17 07:32 Dose: 8 units Insulin Human Lispro (Humalog) 0 units SQ HS [facility] PRN Reason: Protocol Stop: 11/21/17 21:01 Magnesium Oxide (Mag-Ox) 400 mg PO BID [facility] PRN Reason: Protocol Stop: 11/20/17 21:01 Last Admin: 05/22/17 07:31 Dose: 400 mg Naloxone HCl (Narcan) 0.4 mg IVP Q2MIN PRN PRN Reason: Opioid Reversal Stop: 11/20/17 18:05 Ondansetron HCl (Zofran) 4 mg IVP Q8HR PRN PRN Reason: Nausea And Vomiting Stop: 11/20/17 18:05 Potassium Chloride (Potassium Chloride) 40 meq PO BID [facility] Stop: 11/20/17 21:01 Last Admin: 05/22/17 07:31 Dose: 40 meq Sertraline HCl (Zoloft) 100 mg PO QAM [facility] Stop: 11/21/17 09:01 Last Admin: 05/22/17 07:31 Dose: 100 mg Sertraline HCl (Zoloft) 50 mg PO HS [facility] Stop: 11/20/17 21:01 Last Admin: 05/21/17 20:36 Dose: 50 mg - Imaging and Cardiology Cardiac cath: report reviewed (2014 normal holter) - EKG Interpretation EKG results cardiology: personally reviewed (SR, diffuse ST flattening), other ( 24 hr tele AVG HR 82, SR with occasional PVCs) Consult Discharge Plan - Plan Referrals: Smita Mauricio, [employer] [Primary Care Provider] - (ECF Placement) <Ingrid Palacio - Last Filed: 05/22/17 13:01> Date of Encounter: 05/22/17 Assessment and Plan Discussion w patient/family: The assessment and plan as outlined above was discussed with the patient and/or family members who expressed understanding and agreement. All questions were answered. Thank you for involving us in the care of your patient. Please call with any questions. History of Present Illness History of present illness: Ms. Mallory is a 67 year old female All Systems Review: A 10-system review of systems was performed and is negative for pertinent findings except as documented above in the HPI. Physical Examination Vital Signs, Last 4 Hours Temp Pulse Resp BP Pulse Ox 05/22/17 10:48 98.1 F 90 16 130/79 98 Results 05/22/17 01:31 05/22/17 09:22 Lab Results 05/21/17 05/21/17 05/22/17 20:13 22:49 01:31 WBC Hgb Hct Plt Count INR APTT 47.8 H D Sodium Potassium 2.0 L* Chloride Carbon Dioxide BUN Creatinine Glucose Calcium Magnesium Total Bilirubin AST ALT Alkaline Phosphatase Troponin I 0.85 H* 05/22/17 05/22/17 05/22/17 01:31 01:31 01:31 WBC 11.8 H Hgb 9.9 L D Hct 33.8 L Plt Count 298 INR 1.2 APTT Sodium 138 Potassium 2.4 L* Chloride 104 Carbon Dioxide 27 BUN 11 Creatinine 0.82 Glucose 223 H Calcium 7.3 L Magnesium 1.4 L Total Bilirubin 0.2 AST 23 ALT 19 Alkaline Phosphatase 104 Troponin I 05/22/17 05/22/17 05/22/17 05:38 05:38 09:22 WBC Hgb Hct Plt Count INR APTT 81.2 H D Sodium 141 Potassium 3.1 L Chloride 105 Carbon Dioxide 28 BUN 10 Creatinine 0.77 Glucose 212 H Calcium 7.3 L Magnesium Total Bilirubin AST ALT Alkaline Phosphatase Troponin I 0.89 H* 05/22/17 11:48 WBC Hgb Hct Plt Count INR APTT 32.9 D Sodium Potassium Chloride Carbon Dioxide BUN Creatinine Glucose Calcium Magnesium Total Bilirubin AST ALT Alkaline Phosphatase Troponin I - Attending Attestation I examined this patient and my medical decision-making was reviewed with the PHLEBOTOMY DIRECTOR/PA/Advanced Practice Nurse/Resident Physician. I agree with the documented findings, disposition and treatment plan. Ms. Mallory presented with elevated troponin in setting of UTI and marked electrolyte abnormalities. ECG demonstrates diffuse flattening which is non diagnostic for ACS. Patient denies chest pain. Agree with checking an echo for review of structure and function and medical management pending review of echo.
--- NOTE | 2017-05-22 13:32 | Electrocardiograph Report ---
[address] [place] [address] Test Date: 2017-05-21 Pat Name: Collette Mallory Department: 103 Room: 2A22 Gender: F Intensive Care Unit Nurse: [facility] : 1950 Requested By: Laurent Muhammad Order Number: [id number] Reading MD: Lowell Ordonez MD Measurements Intervals [place] Rate: 75 P: 15 MI: 161 QRS: -10 QRSD: 100 T: -13 QT: 404 QTc: 434 Interpretive Statements SINUS RHYTHM WITH OCCASIONAL SUPRAVENTRICULAR PREMATURE COMPLEXES LEFT ATRIAL ENLARGEMENT POSSIBLE ANTERIOR MYOCARDIAL INFARCTION, OF INDETERMINATE AGE INFERIOR MYOCARDIAL INFARCTION, OF INDETERMINATE AGE Electronically Signed On 05-22-2017 13:30:59 EDT by Lowell Ordonez MD
[2017-05-22] MEDS: Metoprolol XL (24 HR) Succ 25 MG TAB.ER.24H PO SCH (14:09)
[2017-05-22] MEDS: Heparin 25,000 UNIT/500 ML D5W 25,000 UNIT/500 ML MLS IVC SCH (23:55)
[2017-05-23 04:54] LABS: Hematocrit 32.5 % (35.3-44.9); Hemoglobin 9.4 g/dL (11.5-15.4); Mean Corpuscular HGB Conc 28.9 g/dL (31.6-35.5); Mean Corpuscular Hemoglobin 22.4 pg (28.0-33.3); Mean Corpuscular Volume 77.6 fL (83.0-100.0); Mean Platelet Volume 9.9 fL (9.4-12.4); Platelet Count 312 K/mcL (140-400); Red Blood Count 4.19 M/mcL (3.82-4.97); Red Cell Distribution Width 18.3 % (11.5-14.5)
[2017-05-23 04:57] LABS: INR 1.1; Prothrombin Time 11.9 Seconds (9.4-12.1)
[2017-05-23 05:03] LABS: BUN/Creatinine Ratio 10 (6-26); Blood Urea Nitrogen 8 mg/dL (7-20); Calcium 7.7 mg/dL (8.6-10.8); Carbon Dioxide 29 mEq/L (19-29); Chloride 108 mEq/L (98-109); Glucose 163 mg/dL (70-99); Magnesium 1.7 mg/dL (1.6-2.6); Osmolality,Calculated 300 (280-300); Potassium 3.1 mEq/L (3.5-4.5); Sodium 144 mEq/L (136-145); eGFR For African Americans > 60 (> 60); eGFR For Non-African Americans > 60 (> 60)
[2017-05-23 05:14] LABS: Activated Partial Thrombo Time 118.5 Seconds (26.0-36.0)
[2017-05-23 05:21] LABS: Heparin anti-factor XA UFH 0.45 IU/mL (0.30-0.70)
--- NOTE | 2017-05-23 07:17 | Venous Imaging Report ---
LE Venous Duplex Patient Name:Collette Mallory Order Number:[id number] Procedure Date:05/22/2017 Date:1950Age:67 yrs Gender:Female Location:[facility] Room #: 2A22 Side Seam Machine Operator:Paris Van, RVT, RDCS Referring MD:Dashawn Armstrong MD computer processing scheduler:Smita Mauricio, SCRAP SEPARATOR Reading MD:Carlos Broderick MD Primary Indications:EDEMA Secondary Indications: Risk Factors Yes/No Hx of DVT Yes Anticoagulants Yes Impressions: Normal right lower extremity deep and superficial venous exam. Findings Venous Duplex Results: Right: Venous imaging of the lower extremity reveals full patency and normal vessel compressibility of the right distal iliac, right common femoral, right superficial femoral, right popliteal, right posterior tibial, right peroneal, right great saphenous and right lesser saphenous. Doppler signals in the evaluated veins were normal. Prior Study: No prior study available for comparison. Lower Extremity Venous Duplex Side Vein Compress Spontaneous Flow Augment Diameter (cm) Depth (cm) Right Distal Iliac Normal Yes Phasic Yes Right Common Femoral Normal Yes Phasic Yes Right Superficial Femoral Normal Yes Phasic Yes Right Popliteal Normal Yes Phasic Yes Right Posterior Tibial Normal Yes Phasic Yes Right Peroneal Normal Yes Phasic Yes Right Great Saphenous Normal Yes Phasic Yes Right Lesser Saphenous Normal Yes Phasic Yes Updated by Carlos Broderick MD on 05/23/2017 7:13:00 AM electronically signed on 05/23/2017 7:13:15 AM with status of Final
[2017-05-23] MEDS ORDERED: Potassium Chloride 40 MEQ, Lidocaine 1% 2 ML in D5% in Water 500 ML IVPB ONE (08:04)
--- NOTE | 2017-05-23 08:04 | Nephrology Progress Note ---
Date of Encounter: 05/23/17 Time of Encounter: 08:02 - Assessment and Plan (1) Hypokalemia Current Visit: Yes Status: Acute Patient is on oral potassium. Potassium is 3.1. I am going to order some IV potassium supplementation today as well. We are awaiting results of plasma renin activity and plasma aldosterone. Check a spot urine for potassium as well. (2) Uterine cancer Current Visit: No Status: Chronic Qualifiers: Malignant neoplasm of uterus location: body of uterus Malignant neoplasm of body of uterus location: unspecified location Qualified Code(s): C54.9 - Malignant neoplasm of corpus uteri, unspecified (3) Neurogenic bladder Current Visit: No Status: Chronic (4) Non-STEMI (non-ST elevated myocardial infarction) Current Visit: Yes Status: Acute Subjective Interval history: Patient reports she continued to have diarrhea throughout the night. Otherwise she is feeling well. Appetite is good. Potassium is improving but remains low. Renal function is stable. Magnesium is improved to 1.7. Urine output is not recorded. Vital signs are stable. Plasma aldosterone and plasma renin activity were ordered yesterday. Results are pending. Objective - Vital Signs Vital signs: Vital Signs Temp Pulse Resp BP Pulse Ox 05/23/17 07:50 97.4 F L 81 24 147/90 96 05/23/17 04:57 98.4 F 83 19 122/63 96 05/23/17 00:13 98.2 F 76 20 131/71 96 05/22/17 19:26 97.7 F 83 18 150/84 99 05/22/17 15:20 98.0 F 87 18 144/76 98 05/22/17 10:48 98.1 F 90 16 130/79 98 Intake and Output 05/22/17 05/23/17 05/23/17 23:59 07:59 15:59 Intake Total 170 / 170 453 / 453 Balance 170 / 170 453 / 453 Intake: IV Fluids 170 / 170 213 / 213 Heparin 25,000 UNIT/500 170 / 170 213 / 213 ML D5W 25,000 unit In 500 ml @ 12 UNIT/KG/HR 14. 696 mls/hr IVC .Q24H TOM Rx#:[id number] Oral 240 / 240 Other: Stool Size Moderate Moderate Stool Consistency liquid liquid Stool Color Black Knight Black # Bowel Movements 3 1 # Bowel Movement Diapers 1 Weight 62.4 kg Blood Glucose* 116 149 Patient Weight 05/23/17 23:59 Weight 62.4 kg - General Appearance Exam: Patient is alert and oriented. She is in no acute distress. Lungs essentially clear to auscultation. Heart regular rate and rhythm. Abdomen is benign. Patient is status post left above-knee amputation. Right lower extremity shows some edema. Velasquez catheter is in place. - Lab 05/23/17 04:47 05/23/17 04:47 Most recent lab results Calcium 7.7 mg/dL (8.6-10.8) L 05/23/17 04:47 Phosphorus 1.9 mg/dL (2.3-4.7) L 05/22/17 09:22 Magnesium 1.7 mg/dL (1.6-2.6) 05/23/17 04:47 Consult Discharge Plan - Plan Referrals: Smita Mauricio, TOOL DISPATCHER [Primary Care Provider] - (ECF Placement)
[2017-05-23] MEDS: Magnesium Oxide 400 MG TABLET PO SCH ×2 (08:48→22:00)
[2017-05-23] MEDS: Aspirin 325 MG TABLET PO SCH (08:48)
[2017-05-23] MEDS: Famotidine 20 MG TABLET PO SCH ×2 (08:49→17:47)
[2017-05-23] MEDS: Insulin LISPRO 300 UNITS/3 ML VIAL SQ SCH ×4 (09:12→22:00)
[2017-05-23] MEDS: Metoprolol XL (24 HR) Succ 25 MG TAB.ER.24H PO SCH (09:30)
[2017-05-23] MEDS: *HR* HYDROcodone/Acet 5/325 mg TABLET PO PRN (09:30)
--- NOTE | 2017-05-23 10:32 | Internal Med Progress Note ---
<Wes Polk - Last Filed: 05/23/17 10:36> Date of Encounter: 05/23/17 Time of Encounter: 10:32 - Assessment and plan (1) Non-STEMI (non-ST elevated myocardial infarction) Current Visit: Yes Status: Acute Assessment and plan: - Troponin 1.05, 0.89, 0.85., 0.89. Leveling out. - Cardiology following, appreciate recommendations. continuing heparin drip for 24-48 hours. Results of echocardiogram pending - No history of coronary artery disease, no cardiac workup in the past - Patient is currently asymptomatic, denies chest pain, shortness of breath, nausea, vomiting, diaphoresis - We will continue aspirin, atorvastatin, heparin ggt per cardiology - APTT elevated this morning at 118.5, dose has been adjusted for therapeutic range. We will continue to monitor - QUIANA score equals 4 (age, risk factors, aspirin use, positive cardiac marker) - Further workup to be determined after results of echocardiogram (2) UTI (urinary tract infection) Current Visit: Yes Status: Acute Assessment and plan: - UA done in emergency department revealed mild leukocyte esterase, small blood , 30-50 white blood cells - Patient is currently asymptomatic including dysuria, fevers, chills, back pain - White count within normal limits - Patient has chronic indwelling Velasquez catheter secondary to neurogenic bladder - Patient started on Rocephin 1 g daily emergency department. We will continue Qualifiers: Urinary tract infection type: catheter-associated UTI Indwelling urinary catheter type: indwelling urethral catheter Encounter type: subsequent encounter Qualified Code(s): T83.511D - Infection and inflammatory reaction due to indwelling urethral catheter, subsequent encounter; N39.0 - Urinary tract infection, site not specified (3) Hypokalemia Current Visit: Yes Status: Acute Assessment and plan: Potassium in the emergency was 1.7. He has been receiving potassium replacements. Most recent K was 3.1 - Possible cause is GI losses vs hormonal imbalance - Nephrology following, appreciate recommendations. Results of serum aldosterone and plasma renal activity pending - Nephrology managing electrolytes. Continue to monitor (4) Hypomagnesemia Current Visit: Yes Status: Acute Assessment and plan: - Magnesium is recently was 1.7 after receiving 2 mg yesterday - We will continue to monitor and plan she has needed - Nephrology following, appreciate recommendations (5) Hx of deep venous thrombosis Current Visit: No Status: Chronic Assessment and plan: - Patient was complaining of right leg swelling. Does admit to some tenderness upon palpation - Ultrasound revealed no evidence of DVT - Calf pain likely secondary to lower extremity edema versus peripheral vascular disease - Patient receiving heparin for NSTEMI (6) DM2 (diabetes mellitus, type 2) Current Visit: No Status: Chronic Assessment and plan: - Continue moderate insulin sliding scale - Xpf-ikvrkdw-ymyrrsolf home medications. Well controlled with metformin - Shins most recent A1c in emergency department was 5.2 - We will continue to monitor Qualifiers: Diabetes mellitus complication status: with unspecified complications Diabetes mellitus detention insulin use: without terminal operator use Qualified Code( s): E11.8 - Type 2 diabetes mellitus with unspecified complications - Time Spent With Patient 25 - 35 minutes - Subjective Interval history: Patient was seen and examined at bedside this morning. She reports she is feeling much better this morning and has no complaints at this time. He currently denies any symptoms of chest pain, shortness of breath, nausea, vomiting, urinary symptoms. She states she did have multiple episodes of diarrhea last evening but has not had any episodes this morning. - Constitutional Vitals: Temp Pulse Resp BP Pulse Ox 97.4 F L 81 24 147/90 96 05/23/17 07:50 05/23/17 07:50 05/23/17 07:50 05/23/17 07:50 05/23/17 07:50 General appearance: Present: A&O X 3, pleasant, no acute distress, answers questions appropriately Exam: Gen.: Vitals noted. No acute distress. AAOx3 HEENT: PERRL, oropharynx clear with moist mucous membranes, Normocephalic, atraumatic Neck: Supple. No adenopathy. Cardiac: RRR, no murmur, +S1/S2 Pulmonary: CTA bilaterally, no wheezes, rales or rhonchi, equal chest expansion Abdomen: soft, nontender, BS noted, no guarding Back: Nontender throughout. MSK: ROM intact, no joint swelling noted Extremities: Kthwg-jvv-awbi amputation on left, scaling of right leg consistent with peripheral vascular disease Neuro: A&Ox3, moves all extremities, no focal deficits Psych: Appropriate mood and behavior Internal Medicine: Result - Labs CBC & Chem 7: 05/23/17 04:47 05/23/17 04:47 Labs: Short CBC 05/23/17 Range/Units 04:47 WBC 9.0 (4.3-11.1) K/mcL Hgb 9.4 L (11.5-15.4) g/dL Hct 32.5 L (35.3-44.9) % Plt Count 312 (140-400) K/mcL BMP 05/23/17 04:47 Sodium 144 Potassium 3.1 L Chloride 108 Carbon Dioxide 29 BUN 8 Creatinine 0.78 Glucose 163 H Calcium 7.7 L - ABG Interpretation ABG results: PT/INR, D-dimer PT 11.9 Seconds (9.4-12.1) 05/23/17 04:47 Consult Discharge Plan - Plan Referrals: Smiat Mauricio CNP [Primary Care Provider] - (ECF Placement) <Sarwat Schafer - Last Filed: 05/23/17 17:37> Date of Encounter: 05/23/17 - Assessment and plan (1) Non-STEMI (non-ST elevated myocardial infarction) Current Visit: Yes Status: Acute (2) UTI (urinary tract infection) Current Visit: Yes Status: Acute Qualifiers: Urinary tract infection type: catheter-associated UTI Indwelling urinary catheter type: indwelling urethral catheter Encounter type: subsequent encounter Qualified Code(s): T83.511D - Infection and inflammatory reaction due to indwelling urethral catheter, subsequent encounter; N39.0 - Urinary tract infection, site not specified (3) Hypokalemia Current Visit: Yes Status: Acute (4) Hypomagnesemia Current Visit: Yes Status: Acute (5) Urinary retention Current Visit: No Status: Chronic (6) DM2 (diabetes mellitus, type 2) Current Visit: No Status: Chronic Qualifiers: Diabetes mellitus complication status: with unspecified complications Diabetes mellitus terminal operator insulin use: without detention use Qualified Code( s): E11.8 - Type 2 diabetes mellitus with unspecified complications - Constitutional Vitals: Temp Pulse Resp BP Pulse Ox 98.1 F 91 26 154/84 90 05/23/17 11:53 05/23/17 11:53 05/23/17 11:53 05/23/17 11:53 05/23/17 11:53 Internal Medicine: Result - Labs CBC & Chem 7: 05/23/17 04:47 05/23/17 04:47 Labs: Short CBC 05/23/17 Range/Units 04:47 WBC 9.0 (4.3-11.1) K/mcL Hgb 9.4 L (11.5-15.4) g/dL Hct 32.5 L (35.3-44.9) % Plt Count 312 (140-400) K/mcL BMP 05/23/17 04:47 Sodium 144 Potassium 3.1 L Chloride 108 Carbon Dioxide 29 BUN 8 Creatinine 0.78 Glucose 163 H Calcium 7.7 L - ABG Interpretation ABG results: PT/INR, D-dimer PT 11.9 Seconds (9.4-12.1) 05/23/17 04:47 - Attending Attestation I examined this patient and my medical decision-making was reviewed with the Resident Physician on 05/23/17. I agree with the documented findings, disposition and treatment plan as described except to the extent set forth below. Ms. Mallory is currently admitted for acute NSTEMI and UTI. She is moderate to high risk due to potential for worsening cardiac status. Ms. Mallory says she feels OK. No pain or new issues. She has bed bugs. Urine is sensitive to Ceftriaxone. To have echo today. Still on heparin for now. Exam Alert. Comfortable Heart reg No wheeze I/P 1. Acute CO 2. UTI with Proteus and E coli Further diagnoses and plan as above.
[2017-05-23 14:01] LABS: Protein/Creatinine Ratio,Urine 0.59 mg/mg (0-0.20)
[2017-05-23 14:44] LABS: Potassium,Urine 10.9 mEq/L
[2017-05-24] MEDS: Heparin 25,000 UNIT/500 ML D5W 25,000 UNIT/500 ML MLS IVC SCH (04:15)
[2017-05-24 05:12] LABS: Hematocrit 33.6 % (35.3-44.9); Hemoglobin 9.9 g/dL (11.5-15.4); Mean Corpuscular HGB Conc 29.5 g/dL (31.6-35.5); Mean Corpuscular Hemoglobin 22.8 pg (28.0-33.3); Mean Corpuscular Volume 77.4 fL (83.0-100.0); Mean Platelet Volume 11.1 fL (9.4-12.4); Platelet Count 352 K/mcL (140-400); Red Blood Count 4.34 M/mcL (3.82-4.97); Red Cell Distribution Width 18.6 % (11.5-14.5)
[2017-05-24 05:36] LABS: BUN/Creatinine Ratio 15 (6-26); Blood Urea Nitrogen 12 mg/dL (7-20); Calcium 8.1 mg/dL (8.6-10.8); Carbon Dioxide 26 mEq/L (19-29); Chloride 106 mEq/L (98-109); Glucose 166 mg/dL (70-99); Magnesium 1.9 mg/dL (1.6-2.6); Osmolality,Calculated 292 (280-300); Sodium 139 mEq/L (136-145); eGFR For African Americans > 60 (> 60); eGFR For Non-African Americans > 60 (> 60)
[2017-05-24 05:58] LABS: Potassium 4.3 mEq/L (3.5-4.5)
[2017-05-24] MEDS: Metoprolol XL (24 HR) Succ 25 MG TAB.ER.24H PO SCH (09:24)
[2017-05-24] MEDS: Magnesium Oxide 400 MG TABLET PO SCH ×2 (09:25→22:06)
[2017-05-24] MEDS: Famotidine 20 MG TABLET PO SCH ×2 (09:25→16:42)
[2017-05-24] MEDS: Aspirin 325 MG TABLET PO SCH (09:25)
--- NOTE | 2017-05-24 09:30 | Cardiology Progress Note ---
Date of Encounter: 05/24/17 Time of Encounter: 08:00 Assessment and Plan (1) Cardiomyopathy Current Visit: Yes Status: Acute TTE demonstrates reduced LVEF, 35% with regional wall motion abnormalities-- chronicity and etiology unclear. Last TTE 05/2015 demonstrates LVEF 60%. Appears euvolemic upon exam. Strict I&Os, daily weights, and Na/fluid restriction diet. Continue betablocker, add ACEi/ARB by d/c if able. No hx of ischemic evaluation. Risk factors for CAD include: DMII and HTN. Recommend C with possible PCI to r/o ischemic etiology. Patient is agreeable, alternatives, risks, and benefits discussed. Further recommendations to follow. Qualifiers: Cardiomyopathy type: unspecified Qualified Code(s): I42.9 - Cardiomyopathy , unspecified (2) Elevated troponin Current Visit: Yes Status: Acute Troponin 1.05, 0.89, 0.85, 0.85. Troponins downtrending/somewhat flat in setting of severe electrolyte imbalance with K as low as 1.7 and Mag 0.8, now improved and with UTI. NSTEMI vs. Demand ischemia. Pt denies chest pain. EKG with diffuse ST flattening. No hx of CAD, no prior ischemic eval. TTE shows moderate to severe LV systolic dysfunction, LVEF 35%. Electrolytes now stable--K 4.3 and Mag 1.9. Plan for [facility] today, further recommendations to follow. Has been on heparin gtt x48 hours. Continue asa, statin, and betablocker. (3) Aortic stenosis Current Visit: Yes Status: Chronic TTE shows possible severe low-flow, low-gradient ; suboptimal study. Consider repeat prior to discharge. Prior TTE in 2014 shows mild . Qualifiers: Cardiac valve disease etiology: etiology unspecified Qualified Code(s): I35.0 - Nonrheumatic aortic (valve) stenosis Discussion w patient/family: The assessment and plan as outlined above was discussed with the patient and/or family members who expressed understanding and agreement. All questions were answered. Thank you for involving us in the care of your patient. Please call with any questions. The patient was discussed and reviewed with Dr. Palacio who agrees with plan as stated above. Subjective Principal diagnosis: Elevated trop/AMS/cardiomyopathy Interval history: Seen and examined. Alert and oriented x3. Denies chest pain or discomfort since admission. Patient states, intermittent chest "twinges" in the past; has also been fatigued over the past several months. Objective Vital Signs, Last 4 Hours Temp Pulse Resp BP Pulse Ox 05/24/17 07:19 98.2 F 71 24 138/77 90 General: Conversant, No Apparent Distress HEENT: Atraumatic, Normocephaly, Mucus Membranes Moist Cardiac: Reg Rate and Rhythm, Normal S1 and S2, Other (holosystolic murmur +2/6) Lungs: Normal Breath Sounds Neuro: Alert and responsive Abdomen: Soft Skin: No rashes noted on visualized skin Musculoskeletal: No Chest Wall Tenderness Extremities: Other (Left AKA) Results 05/24/17 04:16 05/24/17 04:16 Lab Results 05/23/17 05/23/17 05/24/17 14:47 22:06 04:16 WBC 7.8 Hgb 9.9 L Hct 33.6 L Plt Count 352 APTT 59.6 H 65.4 H Sodium Potassium Chloride Carbon Dioxide BUN Creatinine Glucose Calcium Magnesium 05/24/17 05/24/17 04:16 04:16 WBC Hgb Hct Plt Count APTT 63.5 H Sodium 139 Potassium 4.3 D Chloride 106 Carbon Dioxide 26 BUN 12 Creatinine 0.78 Glucose 166 H Calcium 8.1 L Magnesium 1.9 Active Medications Acetaminophen (Tylenol) 650 mg PO Q6HR PRN PRN Reason: Mild Pain (1-3) Stop: 11/20/17 18:05 Hydrocodone Bitart/Acetaminophen (Mason 5-325 Mg) 1 tab PO Q6HR PRN PRN Reason: Moderate to Severe Pain (4-10) Stop: 11/21/17 10:32 Last Admin: 05/23/17 09:30 Dose: 1 tab Aspirin (Aspirin) 81 mg PO DAILY [facility] Stop: 11/23/17 09:34 Atorvastatin Calcium (Lipitor) 20 mg PO HS [facility] Stop: 11/20/17 21:01 Last Admin: 05/23/17 22:00 Dose: 20 mg Dextrose/Water (Dextrose 50% (Syg)) 25 ml IVP AD PRN PRN Reason: Hypoglycemia Stop: 11/20/17 18:04 Famotidine (Pepcid) 20 mg PO 0730,1630 [facility] Stop: 11/21/17 16:31 Last Admin: 05/23/17 17:47 Dose: 20 mg Ferrous Sulfate (Ferrous Sulfate) 325 mg PO BIDWM [facility] Stop: 11/21/17 17:01 Last Admin: 05/23/17 17:47 Dose: 325 mg Heparin Sodium (Porcine) (Heparin) 3,700 unit 60 unit/kg (3700 unit) IVP Q6HR PRN PRN Reason: SEE COMMENTS Stop: 11/20/17 15:46 Last Admin: 05/22/17 21:51 Dose: 3,700 unit Heparin Sodium (Porcine) (Heparin) 1,800 unit 30 unit/kg (1800 unit) IVP Q6H PRN PRN Reason: SEE COMMENTS Stop: 11/20/17 15:46 Last Admin: 05/21/17 23:35 Dose: 1,800 unit Heparin Sodium/Dextrose (Heparin 25,000 Unit/500 Ml D5w) 25,000 unit in 500 mls @ 14.696 mls/hr IVC .Q24H TOM; 12 UNIT/KG/HR PRN Reason: Protocol Stop: 11/20/17 15:46 Last Titration: 05/24/17 06:01 Dose: 15.18 unit/kg/hr, 18.591 mls/hr Ceftriaxone Sodium 1,000 mg/ (Dextrose) 100 mls @ 200 mls/hr IVPB DAILY [facility] Stop: 11/21/17 09:01 Last Admin: 05/23/17 08:48 Dose: 200 mls/hr Dextrose (Dextrose 5%) 1,000 mls @ 100 mls/hr IVC .Q10H PRN PRN Reason: HYPOGLYCEMIA Stop: 11/20/17 18:04 Insulin Human Lispro (Humalog) 0 units SQ TIDAC [facility] PRN Reason: Protocol Stop: 11/21/17 07:31 Last Admin: 05/23/17 17:42 Dose: 4 units Insulin Human Lispro (Humalog) 0 units SQ HS [facility] PRN Reason: Protocol Stop: 11/21/17 21:01 Last Admin: 05/23/17 22:00 Dose: Not Given Magnesium Oxide (Mag-Ox) 400 mg PO BID [facility] PRN Reason: Protocol Stop: 11/20/17 21:01 Last Admin: 05/23/17 22:00 Dose: 400 mg Metoprolol Succinate (Toprol Xl) 25 mg PO DAILY [facility] Stop: 11/21/17 13:16 Last Admin: 05/23/17 09:30 Dose: 25 mg Naloxone HCl (Narcan) 0.4 mg IVP Q2MIN PRN PRN Reason: Opioid Reversal Stop: 11/20/17 18:05 Ondansetron HCl (Zofran) 4 mg IVP Q8HR PRN PRN Reason: Nausea And Vomiting Stop: 11/20/17 18:05 Potassium Chloride (Potassium Chloride) 20 meq PO BID [facility] Stop: 11/23/17 21:01 Sertraline HCl (Zoloft) 100 mg PO QAM [facility] Stop: 11/21/17 09:01 Last Admin: 05/23/17 08:49 Dose: 100 mg Sertraline HCl (Zoloft) 50 mg PO HS [facility] Stop: 11/20/17 21:01 Last Admin: 05/23/17 22:00 Dose: 50 mg - Imaging and Cardiology Echo: report reviewed Other Results: 12 hour tele: avg HR=74 SR - EKG Interpretation EKG results cardiology: personally reviewed Consult Discharge Plan - Plan Referrals: Smita Mauricio, STOCKBROKING DEALER [Primary Care Provider] - (ECF Placement)
[2017-05-24] MEDS: Insulin LISPRO 300 UNITS/3 ML VIAL SQ SCH ×4 (10:00→22:05)
--- NOTE | 2017-05-24 10:37 | Nephrology Progress Note ---
Date of Encounter: 05/24/17 Time of Encounter: 10:20 - Assessment and Plan (1) Hypokalemia Current Visit: Yes Status: Acute K 4.3. Urine K 10.9, likely does not have renal K+ wasting. Plasma renin pending. Subjective Principal diagnosis: Elevated trop/AMS/cardiomyopathy Interval history: Watching TV, eating, drinking. No new complaints. Objective - Vital Signs Vital signs: Vital Signs Temp Pulse Resp BP Pulse Ox 05/24/17 09:59 98.0 F 76 23 154/84 95 05/24/17 07:19 98.2 F 71 24 138/77 90 05/24/17 05:01 97.9 F 73 16 122/77 92 05/23/17 23:59 97.9 F 72 16 125/72 92 05/23/17 20:43 98.3 F 77 16 110/68 94 05/23/17 16:44 96.7 F L 72 17 119/70 93 05/23/17 11:53 98.1 F 91 26 154/84 90 Intake and Output 05/23/17 05/24/17 05/24/17 23:59 07:59 15:59 Intake Total 240 / 240 320 / 320 0 / 0 Output Total 250 / 250 Balance -10 / -10 320 / 320 0 / 0 Intake: IV Fluids 320 / 320 Heparin 25,000 UNIT/500 320 / 320 ML D5W 25,000 unit In 500 ml @ 12 UNIT/KG/HR 14. 696 mls/hr IVC .Q24H TOM Rx#:[id number] Oral 240 / 240 0 / 0 Output: Catheter 250 / 250 Other: Meal Dinner Percent of Meal Consumed 5% Stool Size Moderate Stool Consistency liquid Stool Color Black Weight 64.1 kg Blood Glucose* 199 171 159 Patient Weight 05/24/17 23:59 Weight 64.1 kg - General Appearance General appearance: Present: well-developed, well-nourished, appears started age EENT: Present: mucous membranes moist Neck: Present: no JVD Respiratory: Present: clear Cardiology: Present: no edema, regular rate, regular rhythm Additional Comments: left AKA Gastrointestinal: Present: hypoactive bowel sounds, no tenderness Integumentary: Present: warm and dry Neurologic: Present: alert and oriented x3 Psychiatric: Present: mood/affect appropriate, cooperative - Lab 05/24/17 04:16 05/24/17 04:16 Most recent lab results Calcium 8.1 mg/dL (8.6-10.8) L 05/24/17 04:16 Phosphorus 1.9 mg/dL (2.3-4.7) L 05/22/17 09:22 Magnesium 1.9 mg/dL (1.6-2.6) 05/24/17 04:16 Urine Creatinine 32 mg/dL 05/23/17 07:09 Urine Total Protein 19 mg/dL (1-14) H 05/23/17 07:09 Consult Discharge Plan - Plan Referrals: Smita Mauricio, ANESTHESIA DIRECTOR [Primary Care Provider] - (ECF Placement)
[2017-05-24] MEDS ORDERED: Heparin 1,000 UNITS/500 mL NS 500 ML ONE (13:10)
[2017-05-24] MEDS ORDERED: Nitroglycerin 1,000 MCG/10 ML VIAL IV ONE (13:10)
[2017-05-24] MEDS ORDERED: *HR* Heparin 10,000 UNIT/10 ML VIAL ONE (13:10)
[2017-05-24] MEDS ORDERED: 0.9 % Sodium Chloride 1,000 ML ONE ×2 (13:10→13:17)
[2017-05-24] MEDS ORDERED: *HR* Midazolam HCl 2 MG/2 ML VIAL ONE (13:17)
[2017-05-24] MEDS ORDERED: *HR* FentaNYL (PF) 100 MCG/2 ML VIAL ONE (13:17)
[2017-05-24 14:37] LABS: Total Volume 24 Hour,Urine 2.06 Liters (0.60-1.60)
--- NOTE | 2017-05-24 15:30 | Pre-Sedation Evaluation ---
Pre-sedation evaluation - Pre-sedation checklist Date of procedure: 05/24/17 Procedure: left heart cath Recent Vitals: Last Vital Signs Temp 98.1 F 05/24/17 11:44 Pulse 71 05/24/17 11:44 Resp 23 05/24/17 09:59 BP 151/82 05/24/17 11:44 Pulse Ox 98 05/24/17 11:44 H&P (including ROS) documented in medical record: Yes Previous reaction to sedatives/anesthetics: Unknown Dietary Status: NPO after Midnight Airway Assessment: Patient can open mouth completely, TMJ function normal, Micrognathia (under-bite, receding chin) absent, Neck with adequate range of motion Dentition: dentures removed Possible difficult airway: No ASA Classification *see protocol: CLASS II-Mild systemic disease Plan of Care: Pt appropriate candidate for procedure/moderate/conscious sedation , Risks/benefits of procedure/sedation discussed w/ patient/family
--- NOTE | 2017-05-24 16:27 | Invasive Diagnostic Lab Proc ---
Name: Collette Mallory Date of Study: 05/24/2017 Date: 1950 Ht: 61.8in Medical Record#: [id number] Age: 67 Wt: 141.10lb Gender: Female BSA: 1.64 Order #: [id number] BMI: 25.96 Physicians Procedure Physician: Juana Rueda MD, FACC Referring MD: Referring MD: Staff Name Position Time In Bonita Rebollar RT Scrub 03:30 PM ThompsonScarlett RT (R) Scrub 03:30 PM Genny Guerrero RN Supply Chain Tech 03:30 PM Indications Indication Non-Stemi Procedures Performed Procedure L HRT ARTERY/VENTRICLE ANGIO Pre-Procedure Checklist Informed consent is complete signed and on chart. H\\T\\P is on chart. ID band is on and ID verified with patient. Patient NPO for procedure The procedure was described for the patient and questions were answered. Blood Pressure: 151/82 ECG is on chart. Plan of Care Patient will tolerate the procedure without complications. Adequate level of comfort will be maintained. Hemodynamics will remain stable Patient will recover from procedure without complications. Respiratory function will be maintained. Cardiac rhythm will remain stable. Patient temperature will be maintained. Patient and/or family have verbalized understanding of the procedure. Patient Education Chief Complaint/Reason for Test: Cardiac Cath Developmental Category: Geriatric (65+ years) Developmentally Appropriate for Age: Yes Learning Barriers: None Education Needs: Procedure Education Method: Verbal Information Taught: Cardiac Cath Educational Evaluation: Able to repeat information Intravenous Access Time IV Size Location DC'd Fluid/Drip Rate Units RN 18g 1 11/21" Patent On Arrival Rt Arm Allergies No Known Drug Allergies - Nkda Vital Signs Time BP (mmHg) HR (bpm) O2 Sat. RR (bpm) LOC 151 / 82 71 98 % 03:31 PM / % 5 = Fully awake and oriented or at pre-proc level 03:31 PM / % 4 = Oriented but drowsy 03:46 PM / % 4 = Oriented but drowsy 03:29 PM 126 / 101 71 92 % 30 03:32 PM 137 / 79 71 100 % 19 03:35 PM 131 / 79 71 100 % 20 03:38 PM 125 / 75 71 100 % 30 03:41 PM 135 / 83 74 94 % 14 03:44 PM 141 / 84 74 97 % 12 03:47 PM 142 / 80 74 99 % 11 03:50 PM 147 / 80 72 99 % 11 03:53 PM 130 / 71 72 99 % 10 03:56 PM 131 / 84 73 99 % 11 03:59 PM 136 / 85 71 99 % 11 04:02 PM 123 / 85 70 99 % 12 04:05 PM 130 / 79 % 04:08 PM 82 / 40 % 04:10 PM 124 / 65 69 99 % Procedural Medications Time Medication Dose Units Method Given By 03:44 PM Versed 2 mg Intravenous Genny Guerrero RN 03:44 PM Fentanyl 50 mcg Intravenous Genny Guerrero RN 03:45 PM Lidocaine 2% 14 ml Subcutaneous Juana Rueda MD, [facility] ASA Classification: CLASS II- Mild systemic disease (i.e. well-controlled diabetes, hypertension, asthma, cigarette smoking) Clarke Score Preprocedure Postprocedure Activity 2- Moves 4 extremities sustained head lift Activity 2- Moves 4 extremities sustained head lift Circulation 2- SBP +/= 20 points of pre-anesthetic level Circulation 2- SBP +/= 20 points of pre-anesthetic level Consciousness 2- Awake and alert oriented x 3 Consciousness 2- Awake and alert oriented x 3 O2 Saturation 2- Able to maintain O2 satruation of 92% on room air O2 Saturation 2- Able to maintain O2 satruation of 92% on room air Respiratory 2- Able to deep breathe and cough well Respiratory 2- Able to deep breathe and cough well Total Score 10 Total Score 10 Contrast Agent: Isovue Diagnostic Contrast: 78 ml Total Contrast: 78 ml Fluoro Dose: 182 mGy Procedure Log Time Note Enter By 03:28 PM CathStat 03:28 PM Vitals capture started with the following parameters, Patient=Adult, Interval=3 min, Initial Cbfkqsep=248 mmHg, Deflation Rate=5 mmHg, Cuff placed on Right Arm 03:29 PM HR=71 bpm, GYUP=799/101 mmhg, SpO2=92.0 %, Resp=30 B/min 03:29 PM 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 Bilateral groin prepped with Chloraprep by Scarlett Mackay (R), safety strap applied then patient was draped. Skin intact. scoates 03:30 PM Physician arrived 15:30 scoates 03:30 PM ASA Class CLASS II- Mild systemic disease (i.e. well-controlled diabetes, hypertension, asthma, cigarette smoking) scoates 03:30 PM Meet and greet completed scoates 03:30 PM Sign in performed according to hospital policy. scoates 03:30 PM Procedure start 15:30 scoates 03:31 PM Time: 15:31 Patient comfortable and pain free: Yes [email or web address] 03:31 PM Time: 15:31LOC: 5 = Fully awake and oriented or at pre-proc level kkallner 03:31 PM Clinical Presentation: Non-STEMI kkallner 03:32 PM HR=71 bpm, YNEI=510/79 mmhg, XhV9=299.0 %, Resp=19 B/min 03:35 PM Time: 15:35 Versed 2 mg Intravenous Given by Genny Guerrero RN shanda 03:35 PM Time: 15:35 Fentanyl 50 mcg Intravenous Given by Genny Guerrero RN shanda 03:35 PM HR=71 bpm, RZQQ=077/79 mmhg, LtP0=871.0 %, Resp=20 B/min 03:38 PM HR=71 bpm, REYM=330/75 mmhg, CeK0=911.0 %, Resp=30 B/min 03:41 PM Pressure channel 1 zero failed. 03:41 PM HR=74 bpm, PMDI=717/83 mmhg, SpO2=94 %, Resp=14 B/min 03:41 PM Pressure channel 1 zeroed. 03:44 PM HR=74 bpm, PTAJ=867/84 mmhg, SpO2=97.0 %, Resp=12 B/min, Comment=sr 03:45 PM Time out performed according to hospital policy kkall 03:45 PM Time: 15:45 14 ml Lidocaine 2% to right groin Subcutaneous Given by Juana Rueda MD, FACC kkallner 03:46 PM Time: 15:31LOC: 4 = Oriented but drowsy kkallner 03:46 PM Time: 15:31 Patient comfortable and pain free: Yes kkallner 03:47 PM 5Fr FL 4 catheter inserted over the wire DN kkallner 03:47 PM wire removed kkallner 03:47 PM HR=74 bpm, LHJP=026/80 mmhg, SpO2=99.0 %, Resp=11 B/min, Comment=sr 03:47 PM LCA angiography performed in multiple views. [email or web address] 03:48 PM Recorded Pressure: Ao, HR=75, Condition=Condition 1 (Aorta) Ao 110/69/88 03:49 PM wire reinserted kkallner 03:49 PM Catheter removed kkallner 03:50 PM 5Fr FR 4 catheter inserted over the wire [facility] kkallner 03:50 PM wire removed kkallner 03:50 PM HR=72 bpm, AVQI=905/80 mmhg, SpO2=99.0 %, Resp=11 B/min 03:50 PM RCA angiography performed in multiple views. [email or web address] 03:51 PM Recorded Pressure: Ao, HR=72, Condition=Condition 1 (Aorta) Ao 120/62/86 03:52 PM Recorded Pressure: Ao, HR=71, Condition=Condition 1 (Aorta) Ao 101/67/84 03:52 PM Catheter removed kkallner 03:52 PM 5Fr Pigtail catheter inserted over the wire [facility] kkallner 03:52 PM Catheter selectively placed in left ventricle kkallner 03:53 PM HR=72 bpm, DAAH=824/71 mmhg, SpO2=99.0 %, Resp=10 B/min 03:53 PM Bolus angiogram of left Ventricle complete: 8 ml/sec for a total of 24 mls kkallner 03:53 PM Pressure channel 1 zeroed. 03:53 PM Recorded Pressure: LV, HR=73, Condition=Condition 1 (Left Ventricle) LV 111/27/32 03:54 PM Recorded Pressure: LV, Ao, HR=73, Condition=Condition 1 (Left Ventricle) LV 115/41/37, (Aorta) Ao 77/-1/53 03:55 PM Bolus angiogram of right Femoral complete: 4 ml/sec for a total of 7 mls kkallner 03:55 PM Procedure completed at 15:55 [email or web address] 03:56 PM HR=73 bpm, ZALB=818/84 mmhg, SpO2=99.0 %, Resp=11 B/min 03:56 PM Sign out completed: Radiation Dose 181.83 mGy Fluoro Time: 1.3 Isovue 370 - 200ml contrast 78 ml given by Juana Rueda MD, FACC. Complications: NoneCardiac Rehab Consult needed: NoConfirmed administered medications: Yes [email or web address] 03:57 PM Isovue 370 - 200ml,1 Bottle(s) used. [email or web address] 03:57 PM Arterial sheath pulled, Mynx closure device used and was Successful [id number] S/N. kkallner 03:57 PM Post ECG NSR kkallner 03:57 PM Post Blood Pressure 131/84 kkallner 03:58 PM 15:57 Post Pulses Rt DP \\T\\ PT 1+ kkallner 03:58 PM Information taught Cardiac Cath and Mynx kkallner 03:58 PM Education needs Procedure, Plan of Care, and Responsibilities of Patient in Care kkallner 03:58 PM Learning barriers :None kkallner 03:58 PM Education Methods Verbal kkallner 03:58 PM Education evaluation Able to repeat information kkallner 03:58 PM Site status No bleeding/hematoma - Rt Groin as reported by Scarlett Mackay RT (R) at 15:58 kkallner 03:58 PM Opsite applied kkallner 03:59 PM Plavix, Effient or Brilinta given No kkallner 03:59 PM Delay to floor No kkallner 03:59 PM Patient out of room: 15:59 kkallner 03:59 PM HR=71 bpm, URCF=059/85 mmhg, SpO2=99.0 %, Resp=11 B/min 03:59 PM no family at this time kkallner 03:59 PM Complications: None kkallner 03:59 PM Fluoro Time: 1.3 kkallner 03:59 PM Isovue 370 - 200ml contrast 78 ml given by Juana Rueda MD, FACC. kkallner 03:59 PM Radiation Dose 181.83 mGy kkallner 04:[address] Michele madison kkallner 04:01 PM Time: 15:46 Patient comfortable and pain free: Yes kkallner 04:02 PM HR=70 bpm, BSCA=058/85 mmhg, SpO2=99.0 %, Resp=12 B/min 04:02 PM Time: 15:46LOC: 4 = Oriented but drowsy kkallner 04:05 PM ZXSH=101/79 mmhg 04:06 PM Coronary Dominance: right [email or web address] 04:06 PM Lesion found in Proximal RCA. Pre Stenosis: 40 Pre QUIANA Flow: [email or web address] 04:06 PM Lesion found in Mid RCA. Pre Stenosis: 70 Pre QUIANA Flow: kkallner 04:07 PM Lesion found in Distal RCA. Pre Stenosis: 99 Pre QUIANA Flow: kkallner 04:07 PM Lesion found in LMCA. Pre Stenosis: 30 Pre QUIANA Flow: kkallner 04:07 PM Lesion found in Proximal LAD. Pre Stenosis: 50 Pre QUIANA Flow: kkallner 04:07 PM Lesion found in Mid LAD. Pre Stenosis: 99 Pre QUIANA Flow: kkallner 04:08 PM Lesion found in Distal LAD. Pre Stenosis: 99 Pre QUIANA Flow: kkallner 04:08 PM Lesion found in Proximal Circumflex. Pre Stenosis: 40 Pre QUIANA Flow: kkallner 04:08 PM NIBP=82/40 mmhg 04:08 PM Lesion found in 1st Marginal. Pre Stenosis: 99 Pre QUIANA Flow: kkallner 04:08 PM NIBP STAT measurement started. 04:09 PM Lesion found in 2nd Marginal. Pre Stenosis: 99 Pre QUIANA Flow: kkallner 04:09 PM Left Main Coronary Artery with 30% stenosis kkallner 04:09 PM Proximal Left Anterior Descending Coronary Artery with 50% stenosis. If graft is supplying this territory, 0 % stenosis. kkallner 04:09 PM Mid/Distal Left Anterior Descending Coronary Artery and diagonal branches with 99% stenosis. If graft is supplying this area, 0 % stenosis kkallner 04:09 PM Circumflex, Obtuse Marginal, Left Posterior Descending, and Left Posterolateral Coronary Arteries with 99 % stenosis. If graft is supplying this area, 0 % stenosis kkallner 04:09 PM Right Coronary, Right Posterior Descending Arteries with Right Posterolateral and Acute Marginal branches with 99 % stenosis. If graft is supplying this area, 0 % stenosis kkallner 04:09 PM Ramus with 0% stenosis. If graft is supplying this area, 0 % stenosis kkallner 04:10 PM HR=69 bpm, EZNQ=940/65 mmhg, SpO2=99 % 04:[address] Bautista notified of referral ta 04:20 PM Report given to Chana LOVING Pt taken to 2A Room #22. 16:20 ta Complications Complication None None Hemodynamics Pressures Site Systolic/A Wave Diastolic/V Wave Mean AO 110 69 88 AO 120 62 86 AO 101 67 84 LV 111 27 32 LV 115 41 37 AO 77 -1 53 Post Procedure Information Blood Pressure: 131/84 mmHg Rhythm: NSR Post procedural instructions were given Surgery consult for CABG Closure Device Time Device Success/Fail MynxGrip Successful Site Checks Time Location Status Staff Sheath In? Note 03:58 PM Rt Groin No bleeding/hematoma Scarlett Mackay RT (R) Pulses Time Site Pre-Procedure Post-Procedure Note Bilateral radial 2+ Rt DP \\T\\ PT 1+ 3:57:00 PM Rt DP \\T\\ PT 1+ Updated by Bonita Rebollar, RT (R) on 05/24/2017 4:21:04 PM electronically signed on 05/24/2017 4:22:27 PM with status of Final
--- NOTE | 2017-05-24 16:27 | Internal Med Progress Note ---
<AbdulazizWes nielson - Last Filed: 05/24/17 16:22> Date of Encounter: 05/24/17 Time of Encounter: 16:22 - Assessment and plan (1) Non-STEMI (non-ST elevated myocardial infarction) Current Visit: Yes Status: Acute Assessment and plan: - Troponin 1.05, 0.89, 0.85., 0.89. Adynamic. - Cardiology following, appreciate recommendations, defer for medications. - Echo 05/23/17 showed EF 35%, newly decreased, will proceed with [facility] this afternoon, pending results. - No history of coronary artery disease, no cardiac workup in the past - Patient is currently asymptomatic, denies chest pain, shortness of breath, nausea, vomiting, diaphoresis - We will continue aspirin, atorvastatin, heparin ggt per cardiology - We will continue to monitor coags. - QUIANA score equals 4 (age, risk factors, aspirin use, positive cardiac marker) (2) UTI (urinary tract infection) Current Visit: Yes Status: Acute Assessment and plan: - UA done in emergency department revealed mild leukocyte esterase, small blood , 30-50 white blood cells - Patient is currently asymptomatic including dysuria, fevers, chills, back pain - WBC 7.8. Urine cx showed proteus and E.coli, both of which are susceptible to Rocephin, on day 4. Will continue for a total of 7 days for uncomplicated cystitis. - Patient has chronic indwelling Velasquez catheter secondary to neurogenic bladder Qualifiers: Urinary tract infection type: catheter-associated UTI Indwelling urinary catheter type: indwelling urethral catheter Encounter type: subsequent encounter Qualified Code(s): T83.511D - Infection and inflammatory reaction due to indwelling urethral catheter, subsequent encounter; N39.0 - Urinary tract infection, site not specified (3) Hypokalemia Current Visit: Yes Status: Acute Assessment and plan: Potassium in the emergency was 1.7. He has been receiving potassium replacements. Most recent K was 4.3 - Possible cause is GI losses vs hormonal imbalance - Nephrology following, appreciate recommendations, defer for management of electrolytes. Decreased dose of K this morning. - urine K 10.9, likely not renal wasting. Plasma renin still pending. - Continue to monitor daily BMP (4) Hypomagnesemia Current Visit: Yes Status: Acute Assessment and plan: - Resolved. - Magnesium is recently was 1.7 after receiving 2 mg yesterday - Nephrology following, appreciate recommendations (5) Hx of deep venous thrombosis Current Visit: No Status: Chronic Assessment and plan: - Patient was complaining of right leg swelling. Does admit to some tenderness upon palpation - Ultrasound revealed no evidence of DVT - Calf pain likely secondary to lower extremity edema versus peripheral vascular disease (6) DM2 (diabetes mellitus, type 2) Current Visit: No Status: Chronic Assessment and plan: - Continue moderate insulin sliding scale - Kyq-mfyxlnm-eytyodqcc home medications. Well controlled with metformin - Shins most recent A1c in emergency department was 5.2 - We will continue to monitor Qualifiers: Diabetes mellitus complication status: with unspecified complications Diabetes mellitus petroleum terminal plant operator insulin use: without nursing home use Qualified Code( s): E11.8 - Type 2 diabetes mellitus with unspecified complications (7) Dysphagia Current Visit: Yes Status: Acute Assessment and plan: -Patient demonstrated difficult swallowing with morning medication. - K supplement changed to liquid. - Speech Eval ordered for risk of aspiration. Could not complete today due to NPO status and C. Appreciate evaluation. Qualifiers: Dysphagia type: unspecified Qualified Code(s): R13.10 - Dysphagia, unspecified - Time Spent With Patient 25 - 35 minutes - Subjective Interval history: Patient was seen and examined at bedside this morning. Patient was initially evaluated at the request of her nurse after having difficulty swallowing her morning medications. She had difficulty swallowing her first pill and had a moment of decrease in alertness. Patient was responsive to noxious stimuli with no difficulty in breathing. After approximately 1 minute patient recovered and was responsive to questions. She stated that she just had difficulty swallowing the pill and did not know what happened after that. She had no lingering symptoms. She denied any symptoms of shortness of breath, dyspnea, fevers, chills, nausea, vomiting. - Constitutional Vitals: Temp Pulse Resp BP Pulse Ox 98.1 F 71 23 151/82 98 05/24/17 11:44 05/24/17 11:44 05/24/17 09:59 05/24/17 11:44 05/24/17 11:44 General appearance: Present: A&O X 3, pleasant, no acute distress, answers questions appropriately Exam: Gen.: Vitals noted. No acute distress. AAOx3 HEENT: PERRL/EOMI, oropharynx clear, Normocephalic, atraumatic Neck: Supple. No adenopathy. Cardiac: RRR, no murmur, +S1/S2 Pulmonary: CTA bilaterally, no wheezes, rales or rhonchi, equal chest expansion Abdomen: soft, nontender, BS noted, no guarding Back: Nontender throughout. MSK: ROM intact, no joint swelling noted Extremities: AKA left leg. no BLE edema, nontender calf, no cyanosis or clubbing Neuro: A&Ox3, moves all extremities, no focal deficits Psych: Appropriate mood and behavior Internal Medicine: Result - Labs CBC & Chem 7: 05/24/17 04:16 05/24/17 04:16 Labs: Short CBC 05/24/17 Range/Units 04:16 WBC 7.8 (4.3-11.1) K/mcL Hgb 9.9 L (11.5-15.4) g/dL Hct 33.6 L (35.3-44.9) % Plt Count 352 (140-400) K/mcL BMP 05/24/17 04:16 Sodium 139 Potassium 4.3 D Chloride 106 Carbon Dioxide 26 BUN 12 Creatinine 0.78 Glucose 166 H Calcium 8.1 L - ABG Interpretation ABG results: PT/INR, D-dimer PT 11.9 Seconds (9.4-12.1) 05/23/17 04:47 Consult Discharge Plan - Plan Referrals: Smita Mauricio, [employer]PERATIONS SUPERVISOR 2ND [employer] [Primary Care Provider] - (ECF Placement) <Sarwat Schafer - Last Filed: 05/24/17 18:05> Date of Encounter: 05/24/17 - Assessment and plan (1) UTI (urinary tract infection) Current Visit: Yes Status: Acute Qualifiers: Urinary tract infection type: catheter-associated UTI Indwelling urinary catheter type: indwelling urethral catheter Encounter type: subsequent encounter Qualified Code(s): T83.511D - Infection and inflammatory reaction due to indwelling urethral catheter, subsequent encounter; N39.0 - Urinary tract infection, site not specified (2) Non-STEMI (non-ST elevated myocardial infarction) Current Visit: Yes Status: Acute (3) Hypokalemia Current Visit: Yes Status: Acute (4) Hypomagnesemia Current Visit: Yes Status: Acute (5) Urinary retention Current Visit: No Status: Chronic (6) DM2 (diabetes mellitus, type 2) Current Visit: No Status: Chronic Qualifiers: Diabetes mellitus complication status: with unspecified complications Diabetes mellitus nursing home insulin use: without petroleum terminal plant operator use Qualified Code( s): E11.8 - Type 2 diabetes mellitus with unspecified complications - Constitutional Vitals: Temp Pulse Resp BP Pulse Ox 98.1 F 65 18 128/74 100 05/24/17 11:44 05/24/17 17:44 05/24/17 17:44 05/24/17 17:44 05/24/17 17:44 Internal Medicine: Result - Labs CBC & Chem 7: 05/24/17 04:16 05/24/17 04:16 Labs: Short CBC 05/24/17 Range/Units 04:16 WBC 7.8 (4.3-11.1) K/mcL Hgb 9.9 L (11.5-15.4) g/dL Hct 33.6 L (35.3-44.9) % Plt Count 352 (140-400) K/mcL BMP 05/24/17 04:16 Sodium 139 Potassium 4.3 D Chloride 106 Carbon Dioxide 26 BUN 12 Creatinine 0.78 Glucose 166 H Calcium 8.1 L - ABG Interpretation ABG results: PT/INR, D-dimer PT 11.9 Seconds (9.4-12.1) 05/23/17 04:47 - Attending Attestation I examined this patient and my medical decision-making was reviewed with the Resident Physician on 05/24/17. I agree with the documented findings, disposition and treatment plan as described except to the extent set forth below. Ms. Mallory is currently admitted for acute NSTEMI and chronic systolic dysfunction and UTI. She is moderate to high risk due to potential for worsening cardiac status. Ms. Mallory feels OK. She had an episode of dsyphagia with potassium today. No CP. To have LHC today. Exam Alert. Comfortable Heart reg No wheeze Abd soft No edema Further diagnoses and plan as above.
[2017-05-24] MEDS ORDERED: Nitroglycerin 0.4 MG TAB.SUBL SL PRN (16:45)
[2017-05-24 17:18] LABS: Creatinine 24 Hour,Urine 0.68 g/day (0.71-1.65); Potassium 24 Hour,Urine 22.7 mEq/day (25.0-125.0)
--- NOTE | 2017-05-24 18:11 | Invasive Diagnostic Lab ---
Name: Collette Mallory Date of Study: 05/24/2017 Date: 1950 Ht: 157.0 cm /61.8 in Medical Record#: [id number] Age: 67 Wt: 64. kg / 141.10 lb Account/Order#: [id number] Gender: Female BSA: 1.64 Order #: [id number] Fluoro Dose: 182 mGy BMI: 25.96 Procedure Physician: Juana Rueda MD, FACC Referring MD: Referring MD: Procedures Performed: LEFT HEART CATH Indications: Non-Stemi Impressions: There is severe three vessel coronary artery disease. Severe LV dysfunction. EF 30% Recommendations: Optimal medical therapy of patient's disease. Aggressive risk factor modification. History/Risk Factors: DVT Diabetes Dyslipidemia CHF Complications: None, None Contrast: Isovue 78ml Closure Device: MynxGrip Hemodynamics: Pressures Site Systolic/ A Wave Diastolic/ V Wave End Diastolic/ Mean HR AO 110 69 88 75 AO 120 62 86 72 AO 101 67 84 71 LV 111 27 32 73 LV 115 41 37 73 LV Ventriculography Ejection Method: LV Gram Ejection Fraction: 30% Wall Motion: HAYNES Anterobasal Severe Hypokinesis Anterolateral Severe Hypokinesis Apical: Severe Hypokinesis Inferoapical Severe Hypokinesis Inferobasal Severe Hypokinesis Coronary Dominance: right Lesion Findings/Interventions * Left Main Coronary Artery There is a 30% stenosis in the LMCA. * Left Anterior Descending There is a 50% stenosis in the Proximal LAD. There is a 99% stenosis in the Mid LAD- diffusely diseased. There is a 99% stenosis in the Distal LAD. * Circumflex There is a 40% stenosis in the Proximal Circumflex- calcified. There is a 99% stenosis in the 1st Marginal. There is a 99% stenosis in the 2nd Marginal. * Right Coronary Artery There is a 40% stenosis in the Proximal RCA- calcified. There is a 70% stenosis in the Mid RCA. There is a 99% stenosis in the Distal RCA- small, diffusely diseased. Updated by Juana Rueda MD, FACC on 05/24/2017 5:59:46 PM Juana Rueda MD, FACC electronically signed on 05/24/2017 6:07:40 PM with status of Final
[2017-05-24] MEDS: Potassium Chloride Elixir 20 MEQ/15 ML UDC PO SCH (22:06)
[2017-05-25 05:46] LABS: Hemoglobin 9.4 g/dL (11.5-15.4)
[2017-05-25 05:47] LABS: Hematocrit 32.5 % (35.3-44.9); Mean Corpuscular HGB Conc 28.9 g/dL (31.6-35.5); Mean Corpuscular Hemoglobin 22.8 pg (28.0-33.3); Mean Corpuscular Volume 78.7 fL (83.0-100.0); Mean Platelet Volume 11.2 fL (9.4-12.4); Platelet Count 339 K/mcL (140-400); Red Blood Count 4.13 M/mcL (3.82-4.97); Red Cell Distribution Width 18.9 % (11.5-14.5)
[2017-05-25 06:03] LABS: Blood Urea Nitrogen 12 mg/dL (7-20); Carbon Dioxide 24 mEq/L (19-29); Chloride 109 mEq/L (98-109); Potassium 3.8 mEq/L (3.5-4.5); Sodium 140 mEq/L (136-145)
[2017-05-25 06:04] LABS: BUN/Creatinine Ratio 16 (6-26); Calcium 7.8 mg/dL (8.6-10.8); Glucose 192 mg/dL (70-99); Osmolality,Calculated 295 (280-300); eGFR For African Americans > 60 (> 60); eGFR For Non-African Americans > 60 (> 60)
--- NOTE | 2017-05-25 08:13 | Event Note ---
Date of Encounter: 05/25/17 Time of Encounter: 08:12 The patient's potassium level remains normal. 24-hour urine potassium excretion was appropriately low. I doubt that she has any renal reason for her hypokalemia. I suspect she was hypokalemic on admission related to GI losses and possibly decreased fluid intake. Nephrology will sign off. Please call again if needed.
[2017-05-25] MEDS: Insulin LISPRO 300 UNITS/3 ML VIAL SQ SCH ×4 (08:47→19:56)
[2017-05-25] MEDS: Magnesium Oxide 400 MG TABLET PO SCH ×2 (08:49→20:02)
[2017-05-25] MEDS: Metoprolol XL (24 HR) Succ 25 MG TAB.ER.24H PO SCH (08:49)
[2017-05-25] MEDS: Famotidine 20 MG TABLET PO SCH ×2 (08:49→16:06)
[2017-05-25] MEDS: Isosorbide MONOnitrate (24 HR) 30 MG TAB.ER.24H PO SCH (08:49)
[2017-05-25] MEDS: Aspirin 81 MG TAB.CHEW PO SCH (08:49)
[2017-05-25] MEDS: Potassium Chloride Elixir 20 MEQ/15 ML UDC PO SCH ×2 (08:50→20:02)
--- NOTE | 2017-05-25 10:21 | Internal Med Progress Note ---
<Krystal Zayas - Last Filed: 05/25/17 14:18> Date of Encounter: 05/25/17 Time of Encounter: 08:30 - Assessment and plan (1) Cardiomyopathy Current Visit: Yes Status: Acute Assessment and plan: - Adynamica troponin (1.05, 0.89, 0.85, 0.89). QUIANA score 4 (age, risk factors, aspirin use, positive cardiac marker) - Currently asymptomatic as patient denies chest pain, shortness of breath, nausea, vomiting, diaphoresis - TTE 05/23/17 showed decreased EF 35% (was 60% on prior TTE in 2014) with regional wall motion abnormalities. - Cardiac cath on 05/24/17 found severe 3-V CAD with severe LV dysfunction EF 30% . No stent placed. - Continue aspirin, Plavix, atorvastatin, beta keli, ACEi and nitrates. - CT surgery consulted for possible surgical intervention. Appreciate further recommendations. Qualifiers: Cardiomyopathy type: unspecified Qualified Code(s): I42.9 - Cardiomyopathy , unspecified (2) UTI (urinary tract infection) Current Visit: Yes Status: Acute Assessment and plan: - Patient has chronic indwelling jay catheter secondary to neurogenic bladder - UA on admission found mild leukocyte esterase, small blood, 30-50 white blood cells - Urine culture grew FQ-resistant Proteus mirabilis and osorio-sensitive E. coli. Both are susceptible to Rocephin. - Continue Rocephin (since 05/21). Will continue for a total of 7 days for uncomplicated cystitis. Qualifiers: Urinary tract infection type: catheter-associated UTI Indwelling urinary catheter type: indwelling urethral catheter Encounter type: subsequent encounter Qualified Code(s): T83.511D - Infection and inflammatory reaction due to indwelling urethral catheter, subsequent encounter; N39.0 - Urinary tract infection, site not specified (3) Hypokalemia Current Visit: Yes Status: Acute Assessment and plan: - K 1.7 on admission. - Nephrology thinks it's more likely secondary to GI loss &/or dehydration given 24-hour urine K excretion was appropriately low. - K 3.8 today. - Currently on KCl 20 meq PO daily. - Continue to monitor daily BMP (4) Hypomagnesemia Current Visit: Yes Status: Acute Assessment and plan: - Mg 0.8 on admission. - Resolved with latest Mg at 1.9. - Continue to monitor. (5) DM2 (diabetes mellitus, type 2) Current Visit: No Status: Chronic Assessment and plan: - Well-controlled with metformin at home - Hgb A1C 5.2 on 05/21/17 - Continue insulin sliding scale Qualifiers: Diabetes mellitus complication status: with unspecified complications Diabetes mellitus terminal system operator insulin use: without terminal system operator use Qualified Code( s): E11.8 - Type 2 diabetes mellitus with unspecified complications - Subjective Interval history: No significant event noted overnight. Patient was seen and examined this morning. Patient has no complaint and denies chest pain, dyspnea, cough, diaphoresis, lightheadedness, syncope, nausea, vomiting. - Constitutional Vitals: Temp Pulse Resp BP Pulse Ox 98.0 F 63 16 141/74 100 05/25/17 07:43 05/25/17 07:43 05/25/17 07:43 05/25/17 04:56 05/25/17 07:43 General appearance: Present: A&O X 3, pleasant, no acute distress, answers questions appropriately - Head Head exam: Present: atraumatic, normocephalic - Eye Eye exam: Present: EOMI, PERRL, conjuntiva pink, sclera anicteric - Neck Neck exam general surgery: Present: supple, trachea midline. Absent: lymphadenopathy - Respiratory Respiratory exam: Present: CTAB. Absent: accessory muscle use, rales, rhonchi, wheezes - Cardiovascular Cardiovascular exam: Present: RRR, +S1, +S2. Absent: diastolic murmur, gallop, rubs, systolic murmur - GI/Abdominal GI/Abdominal exam: Present: normal bowel sounds, soft, no peritoneal signs. Absent: distended, tenderness - Extremities Exam Extremities exam: Present: pedal edema (Mild right LE edema.), warm, radial pulses palpable and symetrical. Absent: calf tenderness, cyanotic Additional comments: S/p left AKA. - Neurological Exam Neurological exam: Present: CN II-XII intact, oriented X3, no focal deficits. Absent: pronater drift, facial droop, speech deficit - Skin Skin exam: Present: dry, intact, warm Internal Medicine: Result - Labs CBC & Chem 7: 05/25/17 04:48 05/25/17 04:48 Labs: Short CBC 05/25/17 Range/Units 04:48 WBC 8.2 (4.3-11.1) K/mcL Hgb 9.4 L (11.5-15.4) g/dL Hct 32.5 L (35.3-44.9) % Plt Count 339 (140-400) K/mcL BMP 05/25/17 04:48 Sodium 140 Potassium 3.8 Chloride 109 Carbon Dioxide 24 BUN 12 Creatinine 0.76 Glucose 192 H Calcium 7.8 L - ABG Interpretation ABG results: PT/INR, D-dimer PT 11.9 Seconds (9.4-12.1) 05/23/17 04:47 Consult Discharge Plan - Plan Referrals: Smita Mauricio, FLOAT OPERATOR [Primary Care Provider] - (ECF Placement) <Sarwat Schafer - Last Filed: 05/25/17 15:33> Date of Encounter: 05/25/17 - Assessment and plan (1) UTI (urinary tract infection) Current Visit: Yes Status: Acute Qualifiers: Urinary tract infection type: catheter-associated UTI Indwelling urinary catheter type: indwelling urethral catheter Encounter type: subsequent encounter Qualified Code(s): T83.511D - Infection and inflammatory reaction due to indwelling urethral catheter, subsequent encounter; N39.0 - Urinary tract infection, site not specified (2) Non-STEMI (non-ST elevated myocardial infarction) Current Visit: Yes Status: Acute (3) CAD (coronary artery disease) Current Visit: Yes Status: Chronic Assessment and plan: 3 vessel disease on [facility] Qualifiers: Coronary Disease-Associated Artery/Lesion type: [place] artery [place] vs. transplanted heart: [place] heart Associated angina: without angina Qualified Code(s): I25.10 - Atherosclerotic heart disease of [place] coronary artery without angina pectoris (4) Hypokalemia Current Visit: Yes Status: Acute (5) Hypomagnesemia Current Visit: Yes Status: Acute (6) Urinary retention Current Visit: No Status: Chronic (7) DM2 (diabetes mellitus, type 2) Current Visit: No Status: Chronic Qualifiers: Diabetes mellitus complication status: with unspecified complications Diabetes mellitus terminal system operator insulin use: without care home use Qualified Code( s): E11.8 - Type 2 diabetes mellitus with unspecified complications - Constitutional Vitals: Temp Pulse Resp BP Pulse Ox 98.3 F 78 17 115/61 95 05/25/17 12:02 05/25/17 12:02 05/25/17 12:02 05/25/17 12:02 05/25/17 12:02 Internal Medicine: Result - Labs CBC & Chem 7: 05/25/17 04:48 05/25/17 04:48 Labs: Short CBC 05/25/17 Range/Units 04:48 WBC 8.2 (4.3-11.1) K/mcL Hgb 9.4 L (11.5-15.4) g/dL Hct 32.5 L (35.3-44.9) % Plt Count 339 (140-400) K/mcL BMP 05/25/17 04:48 Sodium 140 Potassium 3.8 Chloride 109 Carbon Dioxide 24 BUN 12 Creatinine 0.76 Glucose 192 H Calcium 7.8 L - ABG Interpretation ABG results: PT/INR, D-dimer PT 11.9 Seconds (9.4-12.1) 05/23/17 04:47 - Attending Attestation I examined this patient and my medical decision-making was reviewed with the Resident Physician on 05/25/17. I agree with the documented findings, disposition and treatment plan as described except to the extent set forth below. Ms. Mallory is currently admitted for acute NSTEMI, UTI and encephalopathy. She remains moderate to high risk due to potential for worsening cardiac issues. Ms. Mallory is doing OK. She is awaiting CT surg opinion regarding cath results. She denies CP or other issues overnight. No fever or chills. Exam Alert. Comfortable Mucus membranes moist Heart reg No wheeze No edema I/P 1. NSTEMI 2. 3 v CAD 3. UTI Further diagnoses and plan as above.
--- NOTE | 2017-05-25 13:41 | Cardiology Progress Note ---
Date of Encounter: 05/25/17 Time of Encounter: 13:30 Assessment and Plan (1) Cardiomyopathy Current Visit: Yes Status: Acute TTE demonstrates reduced LVEF, 35% with regional wall motion abnormalities, ischemic in etiology. Last TTE 05/2015 demonstrates LVEF 60%. [facility] 05/24/17: severe 3v CAD--per CT surgery during [facility], lesions are not graftable. CT surgery consulted for further recommendations. Appears euvolemic upon exam. Strict I&Os, daily weights, and Na/fluid restriction diet. Continue betablocker , ACEi, plavix, and nitrates. Qualifiers: Qualified Code(s): I42.9 - Cardiomyopathy, unspecified (2) Elevated troponin Current Visit: Yes Status: Acute Troponin 1.05, 0.89, 0.85, 0.85. Troponins downtrending/somewhat flat in setting of severe electrolyte imbalance with K as low as 1.7 and Mag 0.8, now improved and with UTI; likely NSTEMI given [facility] findings. Pt denies chest pain. EKG with diffuse ST flattening. [facility]--severe 3v CAD--medical management recommended, CT surgery consulted. Eectrolytes now stable--K 4.3 and Mag 1.9. Continue asa, statin, plavix, nitrates, and betablocker. (3) Aortic stenosis Current Visit: Yes Status: Chronic Moderate to severe with reduced LVEF. Discussed with Dr. Palacio, recommend trial of medical therapy with asa, statin, betablocker, ACEi, and nitrates. CT surgery consult pending for further recommendations. Qualifiers: Qualified Code(s): I35.0 - Nonrheumatic aortic (valve) stenosis Discussion w patient/family: The assessment and plan as outlined above was discussed with the patient and/or family members who expressed understanding and agreement. All questions were answered. Thank you for involving us in the care of your patient. Please call with any questions. The patient was discussed and reviewed with Dr. Palacio who agrees with plan as stated above. Subjective Principal diagnosis: Elevated trop/AMS/cardiomyopathy Interval history: Seen and examined. Alert and oriented x3. Denies chest pain or discomfort since admission. Patient states, intermittent chest "twinges" in the past; has also been fatigued over the past several months. Objective Vital Signs, Last 4 Hours Temp Pulse Resp BP Pulse Ox 05/25/17 12:02 98.3 F 78 17 115/61 95 Results 05/25/17 04:48 05/25/17 04:48 Lab Results 05/25/17 05/25/17 05/25/17 04:48 04:48 04:48 WBC 8.2 Hgb 9.4 L Hct 32.5 L Plt Count 339 APTT 28.5 D Sodium 140 Potassium 3.8 Chloride 109 Carbon Dioxide 24 BUN 12 Creatinine 0.76 Glucose 192 H Calcium 7.8 L Active Medications Acetaminophen (Tylenol) 650 mg PO Q6HR PRN PRN Reason: Mild Pain (1-3) Stop: 11/20/17 18:05 Hydrocodone Bitart/Acetaminophen ([place] 5-325 Mg) 1 tab PO Q6HR PRN PRN Reason: Moderate to Severe Pain (4-10) Stop: 11/21/17 10:32 Last Admin: 05/23/17 09:30 Dose: 1 tab Aspirin (Aspirin) 81 mg PO DAILY [facility] Stop: 11/23/17 09:34 Last Admin: 05/25/17 08:49 Dose: 81 mg Atorvastatin Calcium (Lipitor) 80 mg PO HS [facility] Stop: 11/23/17 21:01 Last Admin: 05/24/17 22:06 Dose: 80 mg Clopidogrel Bisulfate (Plavix) 75 mg PO DAILY [facility] Stop: 11/23/17 16:46 Last Admin: 05/25/17 08:49 Dose: 75 mg Dextrose/Water (Dextrose 50% (Syg)) 25 ml IVP AD PRN PRN Reason: Hypoglycemia Stop: 11/20/17 18:04 Famotidine (Pepcid) 20 mg PO 0730,1630 [facility] Stop: 11/21/17 16:31 Last Admin: 05/25/17 08:49 Dose: 20 mg Ferrous Sulfate (Ferrous Sulfate) 325 mg PO BIDWM [facility] Stop: 11/21/17 17:01 Last Admin: 05/25/17 08:46 Dose: 325 mg Glucagon (Glucagen) 1 mg IM ONCE PRN PRN Reason: Hypoglycemia Stop: 11/20/17 18:04 Glucose (Gluctose) 15 gm PO ONCE PRN PRN Reason: Hypoglycemia Stop: 11/20/17 18:04 Glucose (Gluctose) 30 gm PO ONCE PRN PRN Reason: Hypoglycemia Stop: 11/20/17 18:04 Ceftriaxone Sodium 1,000 mg/ (Dextrose) 100 mls @ 200 mls/hr IVPB DAILY [facility] Stop: 11/21/17 09:01 Last Admin: 05/25/17 08:45 Dose: 200 mls/hr Dextrose (Dextrose 5%) 1,000 mls @ 100 mls/hr IVC .Q10H PRN PRN Reason: HYPOGLYCEMIA Stop: 11/20/17 18:04 Insulin Human Lispro (Humalog) 0 units SQ TIDAC [facility] PRN Reason: Protocol Stop: 11/21/17 07:31 Last Admin: 05/25/17 12:12 Dose: 8 units Insulin Human Lispro (Humalog) 0 units SQ HS [facility] PRN Reason: Protocol Stop: 11/21/17 21:01 Last Admin: 05/24/17 22:05 Dose: Not Given Isosorbide Mononitrate (Imdur) 30 mg PO DAILY [facility] Stop: 11/24/17 09:01 Last Admin: 05/25/17 08:49 Dose: 30 mg Lisinopril (Zestril) 2.5 mg PO DAILY [facility] PRN Reason: Protocol Stop: 11/24/17 09:01 Last Admin: 05/25/17 08:49 Dose: 2.5 mg Magnesium Oxide (Mag-Ox) 400 mg PO BID [facility] PRN Reason: Protocol Stop: 11/20/17 21:01 Last Admin: 05/25/17 08:49 Dose: 400 mg Metoprolol Succinate (Toprol Xl) 25 mg PO DAILY [facility] Stop: 11/21/17 13:16 Last Admin: 05/25/17 08:49 Dose: 25 mg Naloxone HCl (Narcan) 0.4 mg IVP Q2MIN PRN PRN Reason: Opioid Reversal Stop: 11/20/17 18:05 Nitroglycerin (Nitroglycerin) 0.4 mg SL Q5MIN PRN PRN Reason: Chest Pain Stop: 11/23/17 16:46 Ondansetron HCl (Zofran) 4 mg IVP Q8HR PRN PRN Reason: Nausea And Vomiting Stop: 11/20/17 18:05 Potassium Chloride (Potassium Chloride) 20 meq PO BID [facility] Stop: 11/23/17 21:01 Last Admin: 07/08/17 08:50 Dose: 20 meq Sertraline HCl (Zoloft) 100 mg PO QAM [facility] Stop: 11/21/17 09:01 Last Admin: 05/25/17 08:49 Dose: 100 mg Sertraline HCl (Zoloft) 50 mg PO HS [facility] Stop: 11/20/17 21:01 Last Admin: 05/24/17 22:06 Dose: 50 mg - Imaging and Cardiology Echo: report reviewed Cardiac cath: report reviewed Other Results: 12 hour tele: avg HR=70 - EKG Interpretation EKG results cardiology: personally reviewed Consult Discharge Plan - Plan Referrals: Smita Mauricio, MAINTENANCE TEAM MEMBER [Primary Care Provider] - (ECF Placement)
[2017-05-25] MEDS: *HR* HYDROcodone/Acet 5/325 mg TABLET PO PRN (20:02)
[2017-05-26 08:18] VITALS: BP 143/76
[2017-05-26] MEDS: Insulin LISPRO 300 UNITS/3 ML VIAL SQ SCH ×2 (09:02→12:12)
[2017-05-26] MEDS: Isosorbide MONOnitrate (24 HR) 30 MG TAB.ER.24H PO SCH (09:03)
[2017-05-26] MEDS: Aspirin 81 MG TAB.CHEW PO SCH (09:03)
[2017-05-26] MEDS: Famotidine 20 MG TABLET PO SCH (09:03)
[2017-05-26] MEDS: Metoprolol XL (24 HR) Succ 25 MG TAB.ER.24H PO SCH (09:03)
[2017-05-26] MEDS: Magnesium Oxide 400 MG TABLET PO SCH (09:04)
[2017-05-26] MEDS: Potassium Chloride Elixir 20 MEQ/15 ML UDC PO SCH (09:04)
--- NOTE | 2017-05-26 09:25 | Cardiothoracic Consult Note ---
Date of Encounter: 05/26/17 Time of Encounter: 09:21 Assessment and Plan (1) DM2 (diabetes mellitus, type 2) Current Visit: No Status: Chronic The assessment and plan as outlined above was discussed with the patient and/or family members who expressed understanding and agreement. All questions were answered. The patient has decreased ventricular function with severe coronary artery disease. I do not feel that the LAD or right coronary artery are bypassable. I do not feel the patient is an operative candidate. Her best option would seem to be medical therapy Qualifiers: Diabetes mellitus complication status: with unspecified complications Diabetes mellitus curbing stonecutter insulin use: without curbing stonecutter use Qualified Code( s): E11.8 - Type 2 diabetes mellitus with unspecified complications - History of Present Illness Consult date: 05/26/17 History of present illness: Ms. Mallory is a 67 year old female The patient is a 67-year-old female who was admitted with a troponin of 1.05. She claims to have no chest pain and no shortness of breath prior to admission. She states that she was admitted with an infection. Echocardiogram revealed decreased left ventricular ejection fraction of 35%. She also had low flow, low gradient aortic valve stenosis. Cardiac catheterization revealed an ejection fraction of 30% she also had triple vessel disease. The circumflex appeared bypassable. However, the distal LAD was small and diffusely diseased and did not appear to be bypassable. Likewise, the distal right coronary artery was small and diffusely diseased and did not appear to be bypassable. Past medical history is notable for hypertension, congestive heart failure, deep venous thrombosis and hyperlipidemia. The patient is status post left [id number] amputation in 2015 for an infection. No known allergies. Social history. She lives by herself outside of [place]. Does not smoke and does not drink. The patient does have diabetes and is on oral agents. The patient is confined to bed and a wheelchair and does not ambulate. Family history is positive for coronary artery disease. Review of systems is notable for no stroke and no TIA. Past Med Surg Social Fam HX - Past Medical History Medical history: cancer, DVT, diabetes, hyperlipidemia Psychiatric history: anxiety, depression - Past Surgical History Surgical History: appendectomy, cancer surgery, hysterectomy, other - Social History Smoking Status: Never smoker Smokeless Tobacco Status: No Alcohol use: none Drug use: none - Family History Mother Living Status: Hx Family Cardiac Disorders: Yes Hx Family Neuromuscular Disorders: No Father Living Status: Son Living Status: Still Living Hx Family Endocrine Disorder: Yes (diabetic) Hx Family Neurologic Disorders: Yes (seizures) Medications and Allergies Metformin [Glucophage] 1,000 mg PO BID 07/13/15 [History] Aspirin 325 mg PO DAILY 05/21/17 [History] Atorvastatin Calcium [Lipitor] 20 mg PO HS 05/21/17 [History] Ferrous Sulfate 324 mg PO BID 05/21/17 [History] Glucagon,Human Recombinant [Glucagon Emergency Kit] 1 mg IJ ONCE PRN 05/21/17 [ History] Nortriptyline HCl 75 mg PO HS 05/21/17 [History] Sertraline [Zoloft] 50 mg PO HS 05/21/17 [History] Sertraline [Zoloft] 100 mg PO QAM 05/21/17 [History] Allergies No Known Allergies Allergy (Verified 01/16/16 14:34) All Systems Review: A 10-system review of systems was performed and is negative for pertinent findings except as documented above in the HPI. Physical Examination Vital Signs, Last 4 Hours Temp Pulse Resp BP Pulse Ox 05/26/17 08:15 98.2 F 68 16 143/76 94 The patient is status post bilateral cataract extractions. Her teeth are in poor repair. Neck is supple. Trachea in the midline. No thyromegaly or carotid bruits. Lungs are clear to percussion and auscultation. Heart is in a regular rate and rhythm. No murmurs, gallops or rubs. Abdomen is benign. She is status post hysterectomy. No tenderness, rebound or guarding. She is status post left above-knee amputation. Cranial nerves, motor and sensory intact. Results 05/25/17 04:48 05/25/17 04:48 Consult Discharge Plan - Plan Referrals: Smita Mauricio, ROUND UP [employer]ING HAND [Primary Care Provider] - (ECF Placement)
--- NOTE | 2017-05-26 10:06 | Cardiology Progress Note ---
Date of Encounter: 05/26/17 Time of Encounter: 10:00 Assessment and Plan (1) Cardiomyopathy Current Visit: Yes Status: Acute TTE demonstrates reduced LVEF, 35% with regional wall motion abnormalities, ischemic in etiology. Last TTE 05/2015 demonstrates LVEF 60%. [facility] 05/24/17: severe 3v CAD, small vessel disease. Appreciate CT surgery recommendations, medical management is recommended as lesions are not graftable/patient deemed not a candidate for bypass. Appears euvolemic upon exam. Strict I&Os, daily weights, and Na/fluid restriction diet. Continue betablocker, ACEi, plavix, and nitrates. Qualifiers: Cardiomyopathy type: unspecified Qualified Code(s): I42.9 - Cardiomyopathy , unspecified (2) Elevated troponin Current Visit: Yes Status: Acute Troponin 1.05, 0.89, 0.85, 0.85. Troponins downtrending/somewhat flat in setting of severe electrolyte imbalance with K as low as 1.7 and Mag 0.8, now improved and with UTI; likely NSTEMI given [facility] findings. Pt denies chest pain. EKG with diffuse ST flattening. [facility]--severe 3v CAD--medical management recommended, CT surgery consulted-- appreciate recommendations. Eectrolytes now stable--K 4.3 and Mag 1.9. Continue asa, statin, plavix, nitrates, and betablocker. (3) Aortic stenosis Current Visit: Yes Status: Chronic Moderate to severe with reduced LVEF. Discussed with Dr. Palacio, recommend trial of medical therapy with asa, statin, betablocker, ACEi, and nitrates. Continue medical therapy, will follow closely in the outpatient setting for consideration of referral to tertiary center. Qualifiers: Cardiac valve disease etiology: etiology unspecified Qualified Code(s): I35.0 - Nonrheumatic aortic (valve) stenosis Discussion w patient/family: The assessment and plan as outlined above was discussed with the patient and/or family members who expressed understanding and agreement. All questions were answered. Thank you for involving us in the care of your patient. Please call with any questions. The patient was discussed and reviewed with Dr. Palacio who agrees with plan as stated above. Subjective Principal diagnosis: Elevated trop/AMS/cardiomyopathy Interval history: Seen and examined. Noted to be forgetful at times. No complaints upon exam this AM. Objective Vital Signs, Last 4 Hours Temp Pulse Resp BP Pulse Ox 05/26/17 08:15 98.2 F 68 16 143/76 94 Results 05/25/17 04:48 05/25/17 04:48 Active Medications Acetaminophen (Tylenol) 650 mg PO Q6HR PRN PRN Reason: Mild Pain (1-3) Stop: 11/20/17 18:05 Hydrocodone Bitart/Acetaminophen ([place] 5-325 Mg) 1 tab PO Q6HR PRN PRN Reason: Moderate to Severe Pain (4-10) Stop: 11/21/17 10:32 Last Admin: 05/25/17 20:02 Dose: 1 tab Aspirin (Aspirin) 81 mg PO DAILY [facility] Stop: 11/23/17 09:34 Last Admin: 05/25/17 08:49 Dose: 81 mg Atorvastatin Calcium (Lipitor) 80 mg PO HS [facility] Stop: 11/23/17 21:01 Last Admin: 05/25/17 20:03 Dose: 80 mg Clopidogrel Bisulfate (Plavix) 75 mg PO DAILY [facility] Stop: 11/23/17 16:46 Last Admin: 05/26/17 09:03 Dose: 75 mg Dextrose/Water (Dextrose 50% (Syg)) 25 ml IVP AD PRN PRN Reason: Hypoglycemia Stop: 11/20/17 18:04 Famotidine (Pepcid) 20 mg PO 0730,1630 [facility] Stop: 11/21/17 16:31 Last Admin: 05/26/17 09:03 Dose: 20 mg Ferrous Sulfate (Ferrous Sulfate) 325 mg PO BIDWM [facility] Stop: 11/21/17 17:01 Last Admin: 05/26/17 09:03 Dose: 325 mg Glucagon (Glucagen) 1 mg IM ONCE PRN PRN Reason: Hypoglycemia Stop: 11/20/17 18:04 Glucose (Gluctose) 15 gm PO ONCE PRN PRN Reason: Hypoglycemia Stop: 11/20/17 18:04 Glucose (Gluctose) 30 gm PO ONCE PRN PRN Reason: Hypoglycemia Stop: 11/20/17 18:04 Ceftriaxone Sodium 1,000 mg/ (Dextrose) 100 mls @ 200 mls/hr IVPB DAILY [facility] Stop: 11/21/17 09:01 Last Admin: 05/26/17 09:04 Dose: 200 mls/hr Dextrose (Dextrose 5%) 1,000 mls @ 100 mls/hr IVC .Q10H PRN PRN Reason: HYPOGLYCEMIA Stop: 11/20/17 18:04 Insulin Human Lispro (Humalog) 0 units SQ TIDAC [facility] PRN Reason: Protocol Stop: 11/21/17 07:31 Last Admin: 05/26/17 09:02 Dose: 6 units Insulin Human Lispro (Humalog) 0 units SQ HS [facility] PRN Reason: Protocol Stop: 11/21/17 21:01 Last Admin: 05/25/17 19:56 Dose: Not Given Isosorbide Mononitrate (Imdur) 30 mg PO DAILY [facility] Stop: 11/24/17 09:01 Last Admin: 05/26/17 09:03 Dose: 30 mg Lisinopril (Zestril) 2.5 mg PO DAILY [facility] PRN Reason: Protocol Stop: 11/24/17 09:01 Last Admin: 05/26/17 09:04 Dose: 2.5 mg Magnesium Oxide (Mag-Ox) 400 mg PO BID [facility] PRN Reason: Protocol Stop: 11/20/17 21:01 Last Admin: 05/26/17 09:04 Dose: 400 mg Metoprolol Succinate (Toprol Xl) 25 mg PO DAILY [facility] Stop: 11/21/17 13:16 Last Admin: 05/26/17 09:03 Dose: 25 mg Naloxone HCl (Narcan) 0.4 mg IVP Q2MIN PRN PRN Reason: Opioid Reversal Stop: 11/20/17 18:05 Nitroglycerin (Nitroglycerin) 0.4 mg SL Q5MIN PRN PRN Reason: Chest Pain Stop: 11/23/17 16:46 Ondansetron HCl (Zofran) 4 mg IVP Q8HR PRN PRN Reason: Nausea And Vomiting Stop: 11/20/17 18:05 Potassium Chloride (Potassium Chloride) 20 meq PO BID [facility] Stop: 11/23/17 21:01 Last Admin: 05/26/17 09:04 Dose: 20 meq Sertraline HCl (Zoloft) 100 mg PO QAM [facility] Stop: 11/21/17 09:01 Last Admin: 05/26/17 09:04 Dose: 100 mg Sertraline HCl (Zoloft) 50 mg PO HS [facility] Stop: 11/20/17 21:01 Last Admin: 05/25/17 20:03 Dose: 50 mg - Imaging and Cardiology Echo: report reviewed Cardiac cath: report reviewed - EKG Interpretation EKG results cardiology: personally reviewed Consult Discharge Plan - Plan Referrals: Smita Mauricio, CREDENTIALING COORDINATOR [Primary Care Provider] - (ECF Placement)
--- NOTE | 2017-05-26 10:48 | Discharge Summary ---
<Krystal Zayas - Last Filed: 05/26/17 15:11> Date of Encounter: 05/26/17 Time of Encounter: 08:45 - Discharge Diagnosis (1) Cardiomyopathy Priority: Primary Status: Acute Qualifiers: Cardiomyopathy type: unspecified Qualified Code(s): I42.9 - Cardiomyopathy , unspecified (2) UTI (urinary tract infection) Priority: Secondary Status: Acute Qualifiers: Urinary tract infection type: catheter-associated UTI Indwelling urinary catheter type: indwelling urethral catheter Encounter type: subsequent encounter Qualified Code(s): T83.511D - Infection and inflammatory reaction due to indwelling urethral catheter, subsequent encounter; N39.0 - Urinary tract infection, site not specified (3) Hypokalemia Priority: Secondary Status: Acute (4) Hypomagnesemia Priority: Secondary Status: Acute (5) DM2 (diabetes mellitus, type 2) Priority: Secondary Status: Chronic Qualifiers: Diabetes mellitus complication status: with unspecified complications Diabetes mellitus custodial insulin use: without long term acute care registered nurse use Qualified Code( s): E11.8 - Type 2 diabetes mellitus with unspecified complications - Discharge Medications Prescriptions: Nitroglycerin 0.4 mg SL Q5MIN PRN #30 tab.subl PRN Reason: Chest Pain Atorvastatin [Lipitor] 80 mg PO HS #60 tablet Clopidogrel [Plavix] 75 mg PO DAILY #30 tablet Isosorbide MONOnitrate (24 HR) [Imdur] 30 mg PO DAILY #30 tab.er.24h Lisinopril [Zestril] 2.5 mg PO DAILY #30 tablet Metoprolol XL (24 HR) Succ [Toprol Xl] 25 mg PO DAILY #30 tab.er.24h Home Medications: Metformin [Glucophage] 1,000 mg PO BID 07/13/15 [History] Aspirin 325 mg PO DAILY 05/21/17 [History] Ferrous Sulfate 324 mg PO BID 05/21/17 [History] Glucagon,Human Recombinant [Glucagon Emergency Kit] 1 mg IJ ONCE PRN 05/21/17 [ History] Nortriptyline HCl 75 mg PO HS 05/21/17 [History] Sertraline [Zoloft] 50 mg PO HS 05/21/17 [History] Sertraline [Zoloft] 100 mg PO QAM 05/21/17 [History] Atorvastatin [Lipitor] 80 mg PO HS #60 tablet 05/26/17 [Rx] Clopidogrel [Plavix] 75 mg PO DAILY #30 tablet 05/26/17 [Rx] Isosorbide MONOnitrate (24 HR) [Imdur] 30 mg PO DAILY #30 tab.er.24h 05/26/17 [ Rx] Lisinopril [Zestril] 2.5 mg PO DAILY #30 tablet 05/26/17 [Rx] Metoprolol XL (24 HR) Succ [Toprol Xl] 25 mg PO DAILY #30 tab.er.24h 05/26/17 [ Rx] Nitroglycerin 0.4 mg SL Q5MIN PRN #30 tab.subl 05/26/17 [Rx] Allergies/Adverse Reactions: Allergies No Known Allergies Allergy (Verified 01/16/16 14:34) Procedures/tests Complete & Pending: Procedures Performed prior 72 hours Category Date Time Status CL Cardiac Catheterization [CL] Routine [employer] 05/24/17 11:45 Completed EV echocardiogram Routine Y 05/23/17 11:25 Completed EV limited echocardiogram Routine Y 05/24/17 17:11 Completed Date of admission: 05/21/17 18:04 Primary care physician: Smita Mauricio CNP Consults: 05/21/17 19:00 Consult to Nephrology [CONS] Routine Consulting Provider: [facility] Marita WARREN Reason for Consult: Severe hypokalemia, workup pending Call Completed: No 05/24/17 09:56 Consult to Speech Therapy [CONS] Routine Comment: Evaluate, develop and implement POC Reason for Consult: was unable to swallow pills, had difficulty. Call Completed: No 05/24/17 10:21 Consult to Cardiac Rehabilitation-Phase1 [CONS] Routine Comment: Reason for Consult: chf, ef 35% Call Completed: No 05/24/17 11:34 Consult to Speech Therapy [CONS] Routine Comment: Evaluate, develop and implement POC Reason for Consult: swallow eval. Episode of possible pill aspiration this AM. Call Completed: No 05/25/17 09:34 Consult to Cardiothoracic Surgery [CONS] Routine Consulting Provider: Cardiothoracic Surgery Xiomara Reason for Consult: 3v CAD Call Completed: Yes Discharging clinician: Krystal Zayas Anticipated date of discharge: 05/26/17 - Patient Status Disposition: Home, Self-Care Condition: Fair Functional capacity at discharge: wheelchair bound Overall status at discharge: patient is progressing back to baseline - Discharge Instructions Instructions: Urinary Tract Infection in Women (DC), Velasquez Catheter Placement and Care (GEN), Diabetes Mellitus Type 2 in Adults (DC) Follow Up With: Smita Mauricio, [employer] [Primary Care Provider] - (within a week.) Additional Instructions: Please continue aspirin and prescribed mediations including Plavix (75 mg daily) , metoprolol succinate (25 mg daily), lisinopril (2.5 mg daily), Imdur (30 mg daily) and nitroglycerin (0.4 mg under tongue pill as need for chest pain). Please note your atorvastatin has been increased to 80 mg daily. Please follow up with your primary care provider within a week. Please follow up with [facility]. Their clinic will contact you regarding appointment. - Diet and Activity Activity: increase activity as tolerated Diet: diabetic diet, low fat, low cholesterol, low salt diet Hospital course: Ms. Mallory is a 67 year old female with PMH of DM, peripheral vascular disease, hyperlipidemia, chronic anemia, status post left above-knee amputation, anxiety/ depression. Patient was sent to ED after being found lying in bed covered in feces with patient's Velasquez catheter containing purulent and milky white material by home health nurse. Patient denies chest pain but was noted to have elevated troponin (1.05, 0.89, 0.85, 0.89), hypokalemia (as low as 1.7) and hypomagnesemia (0.8). Patient was admitted on 05/21/17 for NSTEMI and started on aspirin, statin and IV heparin. Cardiology was consulted. TTE 05/23/17 showed decreased EF 35% (was 60% on prior TTE in 2014) with regional wall motion abnormalities. Cardiac cath on 05/24/17 found severe 3-V CAD with severe LV dysfunction EF 30% but no stent placed. Cardiothoracic surgery was consulted and recommends medical management given patient is a poor surgical candidate and her coronary arteries is considered not bypassable. Dr. Pradhan of nephrology was consulted for hypokalemia and thinks it's more likely secondary to GI loss &/or dehydration given 24-hour urine K excretion was appropriately low. Given patient remains hemodynamically stable and electrolytes normalized, patient will be discharged home with home health nursing for her cath care. Patient was instructed to continue her aspirin along with prescribed mediations including Plavix (75 mg daily), metoprolol succinate (25 mg daily), lisinopril ( 2.5 mg daily), Imdur (30 mg daily) and nitroglycerin (0.4 mg under tongue pill as need for chest pain). Patient's atorvastatin has also been increased to 80 mg daily. Patient was also instructed to follow up with her primary care provider within a week and [facility] will arrange outpatient follow-up as well. Patient verbalized her understanding and agreed with the discharge plan. All questions answered. - Time Spent with Patient Total time spent providing and/or coordinating discharge services: Greater than 30 minutes - Constitutional Vitals: Temp Pulse Resp BP Pulse Ox 98.2 F 68 16 143/76 94 05/26/17 08:15 05/26/17 08:15 05/26/17 08:15 05/26/17 08:15 05/26/17 08:15 General appearance: Present: A&O X 3, pleasant, no acute distress, answers questions appropriately - Head Head exam: Present: atraumatic, normocephalic - Eye Eye exam: Present: EOMI, PERRL, conjuntiva pink, sclera anicteric - Neck Neck exam general surgery: Present: supple, trachea midline. Absent: lymphadenopathy - Respiratory Respiratory exam: Present: CTAB. Absent: accessory muscle use, rales, rhonchi, wheezes - Cardiovascular Cardiovascular exam: Present: RRR, +S1, +S2. Absent: diastolic murmur, gallop, rubs, systolic murmur - GI/Abdominal GI/Abdominal exam: Present: normal bowel sounds, soft, no peritoneal signs. Absent: distended, tenderness - Extremities Exam Extremities exam: Present: pedal edema (Mild right LE edema), warm, radial pulses palpable and symetrical. Absent: calf tenderness, cyanotic Additional comments: S/p left AKA. - Neurological Exam Neurological exam: Present: CN II-XII intact, oriented X3, no focal deficits. Absent: pronater drift, facial droop, speech deficit - Skin Skin exam: Present: dry, intact <Sarwat Schafer - Last Filed: 05/26/17 17:38> Date of Encounter: 05/26/17 - Discharge Diagnosis (1) UTI (urinary tract infection) Status: Acute Qualifiers: Urinary tract infection type: catheter-associated UTI Indwelling urinary catheter type: indwelling urethral catheter Encounter type: subsequent encounter Qualified Code(s): T83.511D - Infection and inflammatory reaction due to indwelling urethral catheter, subsequent encounter; N39.0 - Urinary tract infection, site not specified (2) Non-STEMI (non-ST elevated myocardial infarction) Priority: Primary Status: Acute (3) CAD (coronary artery disease) Priority: Secondary Status: Chronic Qualifiers: Coronary Disease-Associated Artery/Lesion type: [place] artery [place] vs. transplanted heart: [place] heart Associated angina: without angina Qualified Code(s): I25.10 - Atherosclerotic heart disease of [place] coronary artery without angina pectoris (4) Hypokalemia Status: Acute (5) Hypomagnesemia Status: Acute (6) Urinary retention Priority: Secondary Status: Chronic (7) DM2 (diabetes mellitus, type 2) Status: Chronic Qualifiers: Diabetes mellitus complication status: with unspecified complications Diabetes mellitus custodial insulin use: without long term acute care registered nurse use Qualified Code( s): E11.8 - Type 2 diabetes mellitus with unspecified complications (8) Cardiomyopathy Status: Acute Qualifiers: Cardiomyopathy type: ischemic Qualified Code(s): I25.5 - Ischemic cardiomyopathy Procedures/tests Complete & Pending: Procedures Performed prior 72 hours Category Date Time Status CL Cardiac Catheterization [CL] Routine [employer] 05/24/17 11:45 Completed EV limited echocardiogram Routine Y 05/24/17 17:11 Completed Date of admission: 05/21/17 18:04 Primary care physician: Smita Mauricio CNP Consults: 05/21/17 19:00 Consult to Nephrology [CONS] Routine Consulting Provider: [facility] Marita WARREN Reason for Consult: Severe hypokalemia, workup pending Call Completed: No 05/24/17 09:56 Consult to Speech Therapy [CONS] Routine Comment: Evaluate, develop and implement POC Reason for Consult: was unable to swallow pills, had difficulty. Call Completed: No 05/24/17 10:21 Consult to Cardiac Rehabilitation-Phase1 [CONS] Routine Comment: Reason for Consult: chf, ef 35% Call Completed: No 05/24/17 11:34 Consult to Speech Therapy [CONS] Routine Comment: Evaluate, develop and implement POC Reason for Consult: swallow eval. Episode of possible pill aspiration this AM. Call Completed: No 05/25/17 09:34 Consult to Cardiothoracic Surgery [CONS] Routine Consulting Provider: Cardiothoracic Surgery Xiomara Reason for Consult: 3v CAD Call Completed: Yes Hospital course: Ms. Mallory is a 67 year old female - Time Spent with Patient Total time spent providing and/or coordinating discharge services: 40min - Constitutional Vitals: Temp Pulse Resp BP Pulse Ox 98.2 F 68 16 143/76 94 05/26/17 08:15 05/26/17 08:15 05/26/17 08:15 05/26/17 08:15 05/26/17 08:15 - Attending Attestation I examined this patient and my medical decision-making was reviewed with the Resident Physician on 05/26/17. I agree with the documented findings, disposition and treatment plan as described except to the extent set forth below. Ms. Mallory is doing OK today. No further chest pain. To be medical management for CAD. She is afebrile with stable vitals. Exam Alert. Comfortable Heart reg Lungs clear at this time Abd soft Plan D/C today Follow up with PCP and cardiology
--- NOTE | 2017-05-26 11:09 | Physician Discharge Referral ---
<Krystal Zayas - Last Filed: 05/26/17 11:06> Home Health/Hosp Referral Info Transfer to: Home Health Provider in Charge Post Discharge: PCP - Diagnosis (1) Cardiomyopathy Priority: Primary Status: Acute (2) UTI (urinary tract infection) Priority: Secondary Status: Acute (3) Hypokalemia Priority: Secondary Status: Acute (4) Hypomagnesemia Priority: Secondary Status: Acute (5) DM2 (diabetes mellitus, type 2) Priority: Secondary Status: Chronic - Respiratory Orders Oxygen / L per min (2L) Smoking Cessation: Smoking cessation has been advised. For more information, call the [place] Tobacco Quit Line at 0-540-ORNW-NOW. - Diet/Nutrition Diet/Nutrition Orders: Cardiac - Services Needed Following services are medically necessary services: Nursing (Nursing 1x per month for cath cre.) - Transfer Medications Prescriptions: Nitroglycerin 0.4 mg SL Q5MIN PRN #30 tab.subl PRN Reason: Chest Pain Atorvastatin [Lipitor] 80 mg PO HS #60 tablet Clopidogrel [Plavix] 75 mg PO DAILY #30 tablet Isosorbide MONOnitrate (24 HR) [Imdur] 30 mg PO DAILY #30 tab.er.24h Lisinopril [Zestril] 2.5 mg PO DAILY #30 tablet Metoprolol XL (24 HR) Succ [Toprol Xl] 25 mg PO DAILY #30 tab.er.24h Home Medications: Metformin [Glucophage] 1,000 mg PO BID 07/13/15 [History] Aspirin 325 mg PO DAILY 05/21/17 [History] Ferrous Sulfate 324 mg PO BID 05/21/17 [History] Glucagon,Human Recombinant [Glucagon Emergency Kit] 1 mg IJ ONCE PRN 05/21/17 [ History] Nortriptyline HCl 75 mg PO HS 05/21/17 [History] Sertraline [Zoloft] 50 mg PO HS 05/21/17 [History] Sertraline [Zoloft] 100 mg PO QAM 05/21/17 [History] Atorvastatin [Lipitor] 80 mg PO HS #60 tablet 05/26/17 [Rx] Clopidogrel [Plavix] 75 mg PO DAILY #30 tablet 05/26/17 [Rx] Isosorbide MONOnitrate (24 HR) [Imdur] 30 mg PO DAILY #30 tab.er.24h 05/26/17 [ Rx] Lisinopril [Zestril] 2.5 mg PO DAILY #30 tablet 05/26/17 [Rx] Metoprolol XL (24 HR) Succ [Toprol Xl] 25 mg PO DAILY #30 tab.er.24h 05/26/17 [ Rx] Nitroglycerin 0.4 mg SL Q5MIN PRN #30 tab.subl 05/26/17 [Rx] Allergies/Adverse Reactions: Allergies No Known Allergies Allergy (Verified 01/16/16 14:34) Certification: Further, I certify that my clinical findings support that this patient is homebound (i.e. absences from home require considerable and taxing effort and are for medical reasons or yarsanism services or infrequently or short duration when for other reasons) because: Homebound Reason: Patient requires assistance of a person or device to safely leave home Attestation: My signature below is to certify that this patient is under my care and that I, or nurse practitioner, or a physician's assistant activities director working with me, has a face-to -face encounter with this patient. <Sarwat Schafer - Last Filed: 05/26/17 13:49> - Diagnosis (1) UTI (urinary tract infection) Priority: Primary Status: Acute (2) Non-STEMI (non-ST elevated myocardial infarction) Priority: Primary Status: Acute (3) CAD (coronary artery disease) Priority: Secondary Status: Chronic (4) Hypokalemia Status: Acute (5) Hypomagnesemia Status: Acute (6) Urinary retention Priority: Secondary Status: Chronic (7) DM2 (diabetes mellitus, type 2) Status: Chronic - Respiratory Orders Smoking Cessation: Smoking cessation has been advised. For more information, call the [place] Tobacco Quit Line at 1-300-FHHE-NOW. - Activity Activity Orders: Up ad brittany Certification: Further, I certify that my clinical findings support that this patient is homebound (i.e. absences from home require considerable and taxing effort and are for medical reasons or yarsanism services or infrequently or short duration when for other reasons) because: Homebound Reason: Patient requires assistance of a person or device to safely leave home, Leaving home requires considerable and taxing effort due to condition Attestation: My signature below is to certify that this patient is under my care and that I, or nurse practitioner, or a physician's assistant activities director working with me, has a face-to -face encounter with this patient.
== END 2017-05-26 14:31 | disposition home health service (06) | DRG 280 ==
LOC: EMEROO 12:15 → 2ANU 12:15
PROVIDERS: ADMIT Family Medicine; ATTEND Internal Medicine